=== PATIENT | female | born 1945 | race Caucasian/White ===

== ENCOUNTER → 2016-08-31 | Outpatient (CLI) | payer MEDICARE ==
[~2016-08-31] MED LIST: ALPR0.257 PO; ALPR0.5T6 PO; ASCO500T3 PO; ASPI81TA50 PO; CA C1TAB28 PO; CALC-98 PO; DULO30CA2 PO; FOLI1TAB16 PO; HYDR-2758 PO; HYDR1TAB20 PO; LEVO75TA5 PO; MULT1TAB77 PO; OLME40TA12 PO; SIMV10TA3 PO; TRAZ150T49 PO; VENL150T PO; VENL75CA PO; trazodone PO; vitamin c PO
--- NOTE | 2016-08-31 12:54 | RAD ---
DATE: 08/31/2016. EXAM: DIGITAL SCREEN LT W/CAD. HISTORY: Personal history of right breast cancer status post mastectomy. Routine left mammographic screening. COMPARISON: 08/30/2015, 08/24/2015, 08/19/2014, 08/18/2013. This study was interpreted with the benefit of Computerized Aided Detection (CAD). FINDINGS: The breast parenchyma heterogeneously dense, which could reduce sensitivity of mammography. There are no suspicious masses, microcalcifications or architectural distortion. Nodules inferomedially on the left are stable and benign. Scattered and vascular calcifications are also benign. BI-RADS CATEGORY: 2 BENIGN FINDING(S). RECOMMENDED FOLLOW-UP: 12M 12 MONTH FOLLOW-UP. PQRS compliance statement: Patient information was entered into a reminder system with a target due date 08/31/2017 for the next mammogram. Mammography is a sensitive method for finding small breast cancers, but it does not detect them all and is not a substitute for careful clinical examination. A negative mammogram does not negate a clinically suspicious finding and should not result in delay in biopsying a clinically suspicious abnormality. "Our facility is accredited by the [employer] Mammography Program."
== END | disposition home or self-care (01) ==
LOC: MAMMO 10:30
PROVIDERS: ATTEND Family Medicine
DX: Z12.31 Encounter for screening mammogram for malignant neoplasm of breast (principal)
CPT/HCPCS: G0202; 77067

== ENCOUNTER → 2017-05-10 | Outpatient (CLI) | payer MEDICARE ==
[2017-05-10] MEDS: BUPIVACAINE MPF 0.5% 10 ML VIAL for KCIC. IJ (14:35)
[2017-05-10] MEDS: IOHEXOL 300 MG/ML 50 ML VIAL. INT ART (14:35)
[2017-05-10] MEDS: methylPREDNISolone ACETATE 40 MG/ML VIAL. INT ART (14:35)
[2017-05-10] MEDS: LIDOCAINE 1% Multi-Dose 20 ML VIAL. ID (14:35)
== END | disposition home or self-care (01) ==
LOC: KCIC 13:54
DX: G89.29 Other chronic pain (principal); M25.552 Pain in left hip
CPT/HCPCS: 20610; 77002; J1030; Q9967

== ENCOUNTER → 2017-12-27 | Outpatient (CLI) | payer MEDICARE ==
[~2017-12-27] MED LIST changes: +REGADENOSON 0.4 MG/5 ML DISP.SYRIN. IV ONE
--- NOTE | 2017-12-27 13:07 | RAD ---
MR#: [id number] Date of Study: 12/27/2017 Ordering Physician: SHAW KHAN, Referring Physician: MICHELLE PEÑA Tech: JAGDISH Kaur APPROVED REPORT Test Type: Pharmacological Stress Nurse/Tech: Brandee MONTELONGO Test Indications: CP Cardiac History: Hyperlipidemia, HTN, See EMR Medications: ASA 81mg, See EMR Medical History: See EMR Resting ECG: SR Resting Heart Rate: 57 bpm Resting Blood Pressure: 114/53mmHg Pretest Chest Pain: No chest pain Nurse/Tech Notes Lungs CTA. Heart tones regular. Consent: The procedure was explained to the patient in lay terms. Informed consent was witnessed. Salas eout was entered into [employer]. History and Stress Test performed by RT Alida (R) (N) Pharm. Details Pharmacologic stress testing was performed using 0.4mg per 5ml of regadenoson given intravenously ove r 7-10 seconds. Stress Symptoms No chest pain or symptoms. POST EXERCISE Reason for Termination: Infusion complete Max HR: 96 bpm Max Blood Pressure: 128/51mmHg Chest Pain: No. Arrhythmia: No. ST Change: No. INTERPRETATION Stress EKG Conclusion: Baseline EKG showed sinus rhythm. No ischemic changes at peak stress. No arr hythmias. Imaging Protocol IMAGE PROTOCOL: Rest Tc-99m/stress Tc-99m 1 day Rest: Stress: Viability: Radiopharm.Tc99m [id number] Sestamibi Dose11.4mCi 34mCi Duration 15min. 13min. Img Date 12/27/2017 12/27/2017 Inj-Img [id number]. 90min. Rest Admin Site:IV - Left AntecubitalAdministrator:LENY Roth, ARRT (R)(N) Stress Admin Site: IV - Left AntecubitalAdministrator: RT Alida (R)(N) STRESS DATA End Diast. Vol.59.0mlLVEDV index BSA33.0ml End Syst. Vol.19.0mlLVESV index BSA11.0ml Myocardial Mass98.0gEject. Lvarmadg02.0% Stress Scores Regional WT1.00Summed WT5.00 Regional WM0.00Summed WM5.00 Study quality was good. Left Ventricular size was Normal at Rest and Stress. Lung uptake was . Left Ventricular ejection fraction is 68%. The rest and stress images show normal perfusion, normal contraction and thickening. LV Perf. Quant 17 Seg. SSS4.00 17 Seg. SRS8.00 17 Seg. SDS0.00 Stress Defect Extent (% LAD)0.00Rest Defect Extent (% LAD)5.00Rev. Defect Extent (% LAD)0.00 Stress Defect Extent (% LCX) 23.80Rest Defect Extent (% LCX)18.80Rev. Defect Extent (% LCX)7.50 Stress Defect Extent (% RCA)0.00Rest Defect Extent (% RCA)20.00Rev. Defect Extent (% RCA)0.00 Stress Defect Extent (% RUCHI)4.80Rest Defect Extent (% RUCHI)15.90Rev. Defect Extent (% RUCHI)1.30 Conclusion 1. Regadenoson cardioisotope stress test did not show any evidence of ischemia or infarct. 2. Normal left ventricular systolic function with ejection fraction calculated at 68%. 3. Low risk for cardiac events. Signed by : Aristeo Baron, Electronically Approved : 12/27/2017 13:06:43
== END | disposition home or self-care (01) ==
LOC: NM 09:21
PROVIDERS: ATTEND Family Medicine
DX: R07.9 Chest pain, unspecified (principal); I10 Essential (primary) hypertension; E78.5 Hyperlipidemia, unspecified; E78.00 Pure hypercholesterolemia, unspecified; E03.9 Hypothyroidism, unspecified; F32.9 Major depressive disorder, single episode, unspecified; F41.9 Anxiety disorder, unspecified; Z85.3 Personal history of malignant neoplasm of breast; Z90.11 Acquired absence of right breast and nipple
CPT/HCPCS: 78452; 93017; 96374; 96375; 96376; A9500; J2785

== ENCOUNTER → 2018-01-17 | Outpatient (CLI) | payer MEDICARE ==
[~2018-01-17] MED LIST changes: +CONTRAST GIVEN. MC PRN; -HYDR-2758 PO; +HYDR-2761 PO; +IOHEXOL 240 MG/ML 50ML VIAL. PO ONE; -REGADENOSON 0.4 MG/5 ML DISP.SYRIN. IV ONE
[2018-01-17 10:43] LABS: CREATININE 0.8 mg/dL (0.6-1.0); GFR 70.3
[2018-01-17] MEDS: IOHEXOL 300 MG/ML 100ML VIAL. IV ONE (11:00)
--- NOTE | 2018-01-18 08:23 | RAD ---
CT of the abdomen and pelvis with contrast, 01/17/2018: HISTORY: Epigastric pain, weight loss Multidetector CT imaging was performed following oral and IV administration of contrast. No hepatic abnormality is detected. The gallbladder is unremarkable. No pancreatic abnormality is seen. The spleen is of normal size. The kidneys show no evidence of obstruction or mass. There is moderate calcific plaquing of the abdominal aorta and its branches. No abdominal or pelvic adenopathy is seen. There is a moderate amount of stool scattered throughout the colon. Colonic diverticula are present, most numerous in the sigmoid region. No paracolonic inflammatory process is seen. The appendix is visualized and shows no abnormality. The bowel loops are not dilated. No free fluid or free air is evident in the abdomen or pelvis. A right breast implant is noted. Moderate multilevel degenerative change is present in the spine. IMPRESSION: 1. Sigmoid diverticulosis. 2. No acute abdominal or pelvic abnormality is detected. PQRS Compliance Statement: One or more of the following individualized dose reduction techniques were utilized for this examination: 1. Automated exposure control 2. Adjustment of the mA and/or kV according to patient size 3. Use of iterative reconstruction technique Electronically signed by: Yonatan Aguiar MD (01/18/2018 8:20 AM) [facility]
== END | disposition home or self-care (01) ==
LOC: CT 09:51
PROVIDERS: ATTEND Internal Medicine Gastroenterology
DX: K57.30 Diverticulosis of large intestine without perforation or abscess without bleeding (principal)
CPT/HCPCS: 36415; 74177; 82565; 84520; Q9967

== ENCOUNTER → 2018-01-25 | Day surgery (SDC) | payer MEDICARE ==
[~2018-01-25] MED LIST changes: -CONTRAST GIVEN. MC PRN; +DULO60CA6 PO; +HYDROmorphone 2 MG/ML VIAL IV PRN; -IOHEXOL 240 MG/ML 50ML VIAL. PO ONE; +IV RINGERS,LACTATED 1000ML 1,000 ML IV SCH; +LIDOCAINE 1% PF 2 ML VIAL. ID PRN; +LIDOCAINE 1% PF 2 ML VIAL. ONE; +LOSA100T14 PO; +MORPHINE SULFATE 2 MG/ML VIAL. IV PRN; +ONDANSETRON PF 4 MG/2 ML VIAL. IV PRN; +PROCHLORPERAZINE 10 MG/2 ML VIAL. IV PRN; +PROPOFOL 20 ML IV ONE; +fentaNYL PF VIAL 100 MCG/2 ML VIAL IV PRN
[2018-01-25 11:43] VITALS: BP 131/62
== END | disposition home or self-care (01) ==
LOC: SURG 09:33
PROVIDERS: ATTEND Internal Medicine Gastroenterology
DX: K29.50 Unspecified chronic gastritis without bleeding (principal); Z88.0 Allergy status to penicillin; F41.9 Anxiety disorder, unspecified; F32.9 Major depressive disorder, single episode, unspecified; I10 Essential (primary) hypertension; E78.00 Pure hypercholesterolemia, unspecified; E03.9 Hypothyroidism, unspecified; M19.90 Unspecified osteoarthritis, unspecified site; Z85.3 Personal history of malignant neoplasm of breast; Z80.3 Family history of malignant neoplasm of breast; Z80.41 Family history of malignant neoplasm of ovary; Z82.49 Family history of ischemic heart disease and other diseases of the circulatory system; Z79.899 Other long term (current) drug therapy; Z98.890 Other specified postprocedural states; Z88.8 Allergy status to other drugs, medicaments and biological substances
CPT/HCPCS: 43235; J2704

== ENCOUNTER 2018-01-29 14:55 | Emergency (ER) | payer MEDICARE ==
[~2018-01-29] VITALS: Ht 162.6 cm; Wt 71.4 kg
[~2018-01-29 14:55] MED LIST changes: -HYDROmorphone 2 MG/ML VIAL IV PRN; -IV RINGERS,LACTATED 1000ML 1,000 ML IV SCH; -LIDOCAINE 1% PF 2 ML VIAL. ID PRN; -LIDOCAINE 1% PF 2 ML VIAL. ONE; -MORPHINE SULFATE 2 MG/ML VIAL. IV PRN; -ONDANSETRON PF 4 MG/2 ML VIAL. IV PRN; -PROCHLORPERAZINE 10 MG/2 ML VIAL. IV PRN; -PROPOFOL 20 ML IV ONE; -fentaNYL PF VIAL 100 MCG/2 ML VIAL IV PRN
[2018-01-29 15:46] LABS: BASO # 0.1 x10^3/uL (0.0-0.2); BASO % 1 % (0-3); EOS # 0.2 x10^3/uL (0.0-0.7); EOS % 4 % (0-3); HEMATOCRIT 38.3 % (36.0-47.0); HEMOGLOBIN 13.2 g/dL (12.0-15.5); LYMPH # 1.1 x10^3/uL (1.0-4.8); LYMPH % 17 % (24-48); MEAN CORPUSCULAR HEMOGLOBIN 34 pg (25-35); MEAN CORPUSCULAR HGB CONC 35 g/dL (31-37); MEAN CORPUSCULAR VOLUME 97 fL (79-100); MONO # 0.6 x10^3/uL (0.0-1.1); MONO % 9 % (0-9); NEUT # 4.5 x10^3uL (1.8-7.7); NEUT % 70 % (31-73); PLATELET COUNT 289 x10^3/uL (140-400); RED BLOOD COUNT 3.95 x10^6/uL (3.50-5.40); RED CELL DISTRIBUTION WIDTH 12.7 % (11.5-14.5); WHITE BLOOD COUNT 6.4 x10^3/uL (4.0-11.0)
--- NOTE | 2018-01-29 16:05 | RAD ---
Examination: Ultrasound abdomen limited HISTORY: History of right upper quadrant pain COMPARISON: None available. FINDINGS: The visualized pancreas grossly appears unremarkable. The echogenicity of the liver grossly appears unremarkable. No evidence of gallstones identified. The common bile duct measures 2.9 mm in diameter. The right kidney measures 10 cm in length. IMPRESSION: Unremarkable right upper quadrant abdomen. Electronically signed by: Humberto Stuart MD (01/29/2018 4:00 PM) [id number]
--- NOTE | 2018-01-29 16:12 | RAD ---
EXAM: CHEST 1 VIEW History: Dyspnea, chest pain COMPARISON: 04/06/2013 TECHNIQUE: Single portable radiograph of the chest FINDINGS: The cardiac silhouette is unremarkable. The lungs are clear bilaterally. The costophrenic sulci are clear and well demarcated. IMPRESSION: No radiographic evidence of an acute cardiopulmonary process. Electronically signed by: Humberto Stuart MD (01/29/2018 4:08 PM) [id number]
--- NOTE | 2018-01-29 17:26 | PHYS DOC ---
Past Medical History Past Medical History: Anxiety, Cancer, Depression, High Cholesterol, Hypertension, Hypothyroid Past Surgical History: Cancer Surgery, Tonsillectomy Additional Past Surgical Histo: RIGHT sided masectomy Additional Information: SMOKES IN HOME Alcohol Use: None Drug Use: None Adult General Chief Complaint Chief Complaint: SHORTNESS OF BREATH HPI HPI Patient is a 72 year old female who presents with dyspnea. Patient has been having symptoms for several months. She describes intermittent episodes of dyspnea that frequently occur both at rest and with activity. She does not have associated chest pain or palpitations. Patient states she has been exhaustively worked up for the symptoms but no acute causes have been found. She did undergo an EGD and was diagnosed with gastritis but it is not clear if her pain symptoms are related to this diagnosis and particularly not her dyspnea. She does have associated abdominal pain which she describes to be in the left upper quadrant. She has undergone CT scan of the abdomen pelvis which did not reveal any acute findings. Today, she presents to the ER because she had an episode of dyspnea. She was standing in her house. She bent over to do something and became short of breath. Her symptoms lasted longer than normal so she became concerned. She contacted her GI physicians office and was recommended to come to the ER. By the time she arrived in the ER, her symptoms had completely resolved. No chest pain. No dyspnea. She does not describe any worsening dyspnea with exertion or orthopnea. No recent illness. She has been eating and drinking normally. Review of Systems Review of Systems Constitutional: Denies fever or chills Eyes: Denies change in visual acuity HENT: Denies nasal congestion Respiratory: Denies cough Cardiovascular: No additional information not addressed in HPI GI: Denies nausea or vomiting : Denies dysuria Musculoskeletal: Denies back pain Integument: Denies rash or skin lesions Neurologic: Denies headache or focal neuro complaints All other systems were reviewed and found to be within normal limits, except as documented in this note. Current Medications Current Medications Current Medications Medications (Trade) Dose Ordered Sig/Luigi Start Time Stop Time Status Last Admin Dose Admin Info (CONTRAST GIVEN -- Rx MONITORING) 1 each PRN DAILY PRN 01/29/18 19:45 01/29/18 21:52 DC Iohexol (Omnipaque 300 Mg/ml) 75 ml 1X ONCE 01/29/18 19:45 01/29/18 19:46 DC 01/29/18 20:06 75 ML Allergies Allergies Allergies Coded Allergies Type Severity Reaction Last Updated Verified Penicillins Allergy Intermediate hives 01/25/18 Yes metronidazole Allergy Intermediate rash 01/25/18 Yes Physical Exam Physical Exam Constitutional: Well developed, well nourished, no acute distress, non-toxic appearance HENT: Normocephalic, atraumatic, bilateral external ears normal, oropharynx moist Eyes: PERRLA, EOMI, conjunctiva normal Neck: Normal range of motion, no tenderness Cardiovascular:Heart rate regular rhythm Lungs & Thorax: Bilateral breath sounds clear to auscultation Abdomen: Bowel sounds normal, soft, no tenderness Skin: Warm, dry, no erythema, no rash Extremities: No edema Neurologic: Alert and oriented X 3 Psychologic: Affect normal Current Patient Data Vital Signs Vital Signs Date Time Temp Pulse Resp B/P (MAP) Pulse Ox O2 Delivery O2 Flow Rate FiO2 01/29/18 21:40 98.2 66 16 126/74 (91) 97 Room Air 98.2 Lab Values Laboratory Tests Test 01/29/18 15:15 01/29/18 17:10 01/29/18 17:54 01/29/18 18:15 White Blood Count 6.4 x10^3/uL (4.0-11.0) Red Blood Count 3.95 x10^6/uL (3.50-5.40) Hemoglobin 13.2 g/dL (12.0-15.5) Hematocrit 38.3 % (36.0-47.0) Mean Corpuscular Volume 97 fL (79-100) Mean Corpuscular Hemoglobin 34 pg (25-35) Mean Corpuscular Hemoglobin Concent 35 g/dL (31-37) Red Cell Distribution Width 12.7 % (11.5-14.5) Platelet Count 289 x10^3/uL (140-400) Neutrophils (%) (Auto) 70 % (31-73) Lymphocytes (%) (Auto) 17 % (24-48) L Monocytes (%) (Auto) 9 % (0-9) Eosinophils (%) (Auto) 4 % (0-3) H Basophils (%) (Auto) 1 % (0-3) Neutrophils # (Auto) 4.5 x10^3uL (1.8-7.7) Lymphocytes # (Auto) 1.1 x10^3/uL (1.0-4.8) Monocytes # (Auto) 0.6 x10^3/uL (0.0-1.1) Eosinophils # (Auto) 0.2 x10^3/uL (0.0-0.7) Basophils # (Auto) 0.1 x10^3/uL (0.0-0.2) Troponin I Quantitative < 0.017 ng/mL (0.000-0.055) Sodium Level 138 mmol/L (136-145) Potassium Level 4.9 mmol/L (3.5-5.1) Chloride Level 102 mmol/L (98-107) Carbon Dioxide Level 29 mmol/L (21-32) Anion Gap 7 (6-14) Blood Urea Nitrogen 22 mg/dL (7-20) H Creatinine 0.7 mg/dL (0.6-1.0) Estimated GFR (Cockcroft-Gault) 82.0 Glucose Level 99 mg/dL (70-99) Calcium Level 9.5 mg/dL (8.5-10.1) Total Bilirubin 0.4 mg/dL (0.2-1.0) Direct Bilirubin 0.1 mg/dL (0.0-0.2) Aspartate Amino Transferase (AST) 24 U/L (15-37) Alanine Aminotransferase (ALT) 24 U/L (14-59) Alkaline Phosphatase 98 U/L (46-116) WN-Iuk-E-Type Natriuretic Peptide 75 pg/mL (0-124) Total Protein 7.0 g/dL (6.4-8.2) Albumin 3.6 g/dL (3.4-5.0) Lipase 88 U/L (73-393) Urine Collection Type Unknown Urine Color Yellow Urine Clarity Clear Urine pH 7.0 Urine Specific [place] 1.015 Urine Protein Negative mg/dL (NEG-TRACE) Urine Glucose (UA) Negative mg/dL (NEG) Urine Ketones (Stick) Negative mg/dL (NEG) Urine Blood Negative (NEG) Urine Nitrite Negative (NEG) Urine Bilirubin Negative (NEG) Urine Urobilinogen Dipstick 0.2 mg/dL (0.2 mg/dL) Urine Leukocyte Esterase Trace (NEG) Urine RBC 0 /HPF (0-2) Urine WBC Occ /HPF (0-4) Urine Squamous Epithelial Cells Occ /LPF Urine Bacteria 0 /HPF (0-FEW) D-Dimer (Karmen) 0.58 ug/mlFEU (0.00-0.50) H Laboratory Tests 01/29/18 15:15 Laboratory Tests 01/29/18 17:10 EKG EKG [] Radiology/Procedures Radiology/Procedures RUQ US: no acute findings CTA chest: no acute findings CXR: no acute findings. Course & Med Decision Making Course & Med Decision Making Pertinent Labs and Imaging studies reviewed. (See chart for details) Patient was evaluated immediately on arrival to her room. Her symptoms have resolved since coming to the ER. We'll check basic abdominal pain and cardiac workups. Patient is scheduled for a right upper quadrant ultrasound in the near future. We will obtain that today. Patient was evaluated in the emergency department for symptoms of dyspnea. She describes dyspnea with exertion primarily but also with position changes and intermittently some shortness of breath while at rest. Her workup in the ER was negative for any acute findings. CT scan of the chest with angiography was completed and was normal. No clot was seen. No other findings. Right upper quadrant ultrasound was completed with her complaint of chronic abdominal pain. This study was normal. BNP was not elevated. Patient did not have signs of fluid overload on her exam. The patient has been extensively worked up for this but has not followed with pulmonology yet. She may benefit from pulmonary function tests at least to rule out a pulmonary cause for her symptoms. She is discharged home this evening. She is referred to follow up with Dr. Zapata. Return to the ER for any new or worsening symptoms. Dragon Disclaimer Dragon Disclaimer This electronic medical record was generated, in whole or in part, using a voice recognition dictation system. Departure Departure Disposition: 01 HOME, SELF-CARE Condition: GOOD Referrals: SHAW KHAN MD (PCP) ELY HER DO Jan 29, 2018 17:26
[2018-01-29 17:45] LABS: CALCIUM 9.5 mg/dL (8.5-10.1); CREATININE 0.7 mg/dL (0.6-1.0); POTASSIUM 4.9 mmol/L (3.5-5.1)
[2018-01-29 17:50] LABS: ALBUMIN 3.6 g/dL (3.4-5.0); DIRECT BILIRUBIN 0.1 mg/dL (0.0-0.2); TOTAL BILIRUBIN 0.4 mg/dL (0.2-1.0)
[2018-01-29 18:01] LABS: BILIRUBIN,URINE NEGATIVE (NEG); CLARITY,URINE CLEAR; COLOR,URINE YELLOW; NITRITE,URINE NEGATIVE (NEG); PROTEIN,URINE NEGATIVE (NEG-TRACE); UROBILINOGEN,URINE 0.2 mg/dL (0.2 mg/dL)
[2018-01-29 18:32] LABS: BACTERIA,URINE 0 /HPF (0-FEW); RBC,URINE 0 /HPF (0-2); SQUAMOUS EPITHELIAL CELL,UR OCC /LPF; WBC,URINE OCC /HPF (0-4)
[2018-01-29] MEDS ORDERED: IOHEXOL 300 MG/ML 100ML VIAL. IV ONE (19:45)
[2018-01-29] MEDS ORDERED: CONTRAST GIVEN. MC PRN (19:45)
--- NOTE | 2018-01-29 20:27 | RAD ---
Examination: CT ANGIOGRAPHY CHEST History: soa, cp, elevated d dimer, vghh127 75ml, no priors Comparison/Correlation: 08/31/2008 CT chest abdomen and pelvis without contrast Findings: Axial images of the chest were obtained following IV contrast. Sagittal and coronal reformatted images were provided. MIP technique utilized exam was performed according to pulmonary arteriography protocol. Excellent opacification of the pulmonary arterial vasculature and the thoracic aorta is noted. Pulmonary arterial vasculature is normal with no thromboembolic disease. No infiltrates, pleural effusions, or suspicious pulmonary nodules. No pericardial effusion. Calcific involvement of the origin of the left subclavian artery is present. Origins of the right brachycephalic, right common carotid, and left common carotid arteries is normal. Calcified lymph node is present along the left lateral margin of the aortic arch. No enlarged or other suspicious lymph nodes. Significant calcific involvement of the origin of the left main renal artery noted. Impression: No pulmonary arterial thromboembolic disease. No infiltrate. Electronically signed by: Anson Alex MD (01/29/2018 8:23 PM) [facility]
--- NOTE | 2018-01-29 20:43 | EKG ---
[facility] [address] [place] [address] Test Date: 2018-01-29 Test Time: 15:12:47 Pat Name: EDUARDO LIPSCOMB Department: Room: Gender: F Quality System Manager: : 1945 Requested By: ELY HER Order Number: [id number] Reading MD: Enoch Coleman Measurements Intervals [place] Rate: 77 P: 28 NM: 148 QRS: 35 QRSD: 72 T: 27 QT: 388 QTc: 440 Interpretive Statements SINUS RHYTHM NONSPECIFIC ST-T WAVE CHANGES. Electronically Signed On 01-30-2018 8:48:34 [employer]IATE by Enoch Coleman
[2018-01-29 21:40] VITALS: BP 126/74
== END 2018-01-29 21:51 | disposition home or self-care (01) ==
LOC: ER 14:55
DX: R06.00 Dyspnea, unspecified (principal); R06.02 Shortness of breath; G89.29 Other chronic pain; R10.9 Unspecified abdominal pain; F41.9 Anxiety disorder, unspecified; F32.9 Major depressive disorder, single episode, unspecified; E78.00 Pure hypercholesterolemia, unspecified; I10 Essential (primary) hypertension; E03.9 Hypothyroidism, unspecified; Z88.0 Allergy status to penicillin; Z88.8 Allergy status to other drugs, medicaments and biological substances
CPT/HCPCS: 36415; 71045; 71275; 76705; 80048; 80076; 81001; 83690; 83880; 84484; 85025; 85379; 93005; 99284; Q9967

== ENCOUNTER → 2018-02-07 | Outpatient (CLI) | payer MEDICARE ==
[2018-01-29 21:40] VITALS: BP 126/74
[~2018-02-07] VITALS: Ht 160 cm; Wt 69.9 kg
[~2018-02-07] MED LIST changes: +SINCALIDE 1.4 MCG in IV NORMAL SALINE 50ML 30 ML IV ONE
--- NOTE | 2018-02-07 12:29 | RAD ---
Examination: NM HEPATOBILIARY SCAN W PHARM History: nausea, lower abdomen pain, light headed, short of breath for 2 1/2 months. 5.2mCi Tc99m Choletec and 1.4mcg CCK given IV over 30 minutes Comparison/Correlation: None Findings: 5.2 mCi technetium 99m Choletec was intravenously administered for hepatic 30 scintigraphy examination. Uptake of radiotracer by liver is normal. Gallbladder is seen at 15 minutes. No biliary dilatation. There is no radiotracer identified within small bowel at 60 minutes. After 60 minutes, 1.4 mcg CCK was intravenously administered over 30 minutes. Imaging was performed over the course of 60 minutes. The gallbladder ejection fraction is 99%. Impression: No evidence of acute or chronic cholecystitis. Radiotracer is not evident within small bowel at 60 minutes and this raises concern for spasm at the sphincter of [place]. Electronically signed by: Anson Alex MD (02/07/2018 12:25 PM) [id number]
== END | disposition home or self-care (01) ==
LOC: NM 08:57
PROVIDERS: ATTEND Internal Medicine Gastroenterology
DX: R10.13 Epigastric pain (principal)
CPT/HCPCS: 78227; A9537; J2805

== ENCOUNTER → 2018-02-21 | Outpatient (CLI) | payer MEDICARE, OTHER ==
[2018-01-29 21:40] VITALS: BP 126/74
[~2018-02-21] MED LIST changes: +ALPR0.254 PO; +ASCO-72 PO; +HYDR-2759 PO; +LACT1CAP41 PO; +LEVO50TA5 PO; +LOSA100T2 PO; -SINCALIDE 1.4 MCG in IV NORMAL SALINE 50ML 30 ML IV ONE; +SUCR1TAB PO
[2018-02-21 10:18] LABS: ALBUMIN 3.6 g/dL (3.4-5.0); ALBUMIN/GLOBULIN RATIO 1.1 (1.0-1.7); CALCIUM 9.1 mg/dL (8.5-10.1); CREATININE 0.8 mg/dL (0.6-1.0); GFR 70.3; TOTAL BILIRUBIN 0.5 mg/dL (0.2-1.0)
--- NOTE | 2018-02-21 15:15 | RAD ---
MRCP, 02/21/2018: HISTORY: Abnormal PIPIDA scan Imaging was performed in axial and coronal planes utilizing a variety of imaging sequences including T2 weighted, fat suppressed T2 weighted, diffusion weighted and opposed phase gradient echo sequences. 2-D and 3-D heavily T2 weighted MRCP sequences were also performed with 3-D reconstructions produced. The gallbladder is unremarkable. The bile ducts are of normal caliber. The distal common bile duct tapers normally at the ampulla. No filling defect is seen in the common duct. The pancreatic duct is normal. No hepatic, pancreatic, splenic or renal abnormality is detected. IMPRESSION: Normal MRCP. Electronically signed by: Yonatan Aguiar MD (02/21/2018 3:11 PM) [facility]
== END | disposition home or self-care (01) ==
LOC: MRI 08:35
PROVIDERS: ATTEND Internal Medicine Gastroenterology
DX: R93.89 Abnormal findings on diagnostic imaging of other specified body structures (principal)
CPT/HCPCS: 36415; 74181; 80053

== ENCOUNTER 2018-03-13 18:19 | Inpatient (IN) | payer OTHER ==
[~2018-03-13] VITALS: Ht 160 cm; Wt 72.6 kg
[~2018-03-13 18:19] MED LIST changes: -ASCO-72 PO; -LOSA100T2 PO; -SUCR1TAB PO
[2018-03-13] MEDS ORDERED: IV NORMAL SALINE 1000ML BAG 1,000 ML IV SCH (18:33)
[2018-03-13] MEDS ORDERED: ASPIRIN CHEWABLE 81 MG TABLET. PO ONE (18:45)
[2018-03-13] MEDS: NITROGLYCERIN SUBLINGUAL 0.4 MG BOTTLE OF 25. SL PRN ×3 (18:49→19:04)
[2018-03-13 18:54] LABS: BASO # 0.1 x10^3/uL (0.0-0.2); BASO % 1 % (0-3); EOS # 0.1 x10^3/uL (0.0-0.7); EOS % 2 % (0-3); HEMATOCRIT 37.9 % (36.0-47.0); HEMOGLOBIN 12.8 g/dL (12.0-15.5); LYMPH # 1.4 x10^3/uL (1.0-4.8); LYMPH % 22 % (24-48); MEAN CORPUSCULAR HEMOGLOBIN 33 pg (25-35); MEAN CORPUSCULAR HGB CONC 34 g/dL (31-37); MEAN CORPUSCULAR VOLUME 97 fL (79-100); MONO # 0.4 x10^3/uL (0.0-1.1); MONO % 6 % (0-9); NEUT # 4.5 x10^3uL (1.8-7.7); NEUT % 69 % (31-73); PLATELET COUNT 266 x10^3/uL (140-400); RED BLOOD COUNT 3.92 x10^6/uL (3.50-5.40); RED CELL DISTRIBUTION WIDTH 12.1 % (11.5-14.5); WHITE BLOOD COUNT 6.5 x10^3/uL (4.0-11.0)
[2018-03-13 19:00] LABS: PROTHROMBIN TIME PATIENT 12.7 SEC (11.7-14.0)
[2018-03-13 19:02] LABS: CALCIUM 9.5 mg/dL (8.5-10.1); CREATININE 0.7 mg/dL (0.6-1.0); POTASSIUM 3.6 mmol/L (3.5-5.1)
[2018-03-13 19:08] LABS: ALBUMIN 4.1 g/dL (3.4-5.0); ALBUMIN/GLOBULIN RATIO 1.3 (1.0-1.7); TOTAL BILIRUBIN 0.5 mg/dL (0.2-1.0); TOTAL PROTEIN 7.2 g/dL (6.4-8.2)
--- NOTE | 2018-03-13 19:21 | PHYS DOC ---
Past Medical History Past Medical History: Anxiety, Hypertension, Hypothyroid Additional Past Medical Histor: breast cancer Past Surgical History: Cancer Surgery, Tonsillectomy Additional Past Surgical Histo: mastectomy right side Alcohol Use: Occasionally Drug Use: None Adult General Chief Complaint Chief Complaint: CHEST PAIN HPI HPI Patient is a 72-year-old female who presents with complaint of chest pain and shortness of breath. Patient states that the shortness of breath is been present for the last few months and is worsened with exertion or when she bends over. She also indicates that she has been having chest discomfort for approximately a month now but today the chest discomfort had gotten worse. She states that pain had been approximately an 8-9 out of 10. She describes pain as a lot of pressure on her chest stating that it feels like an elephant is on her chest. Patient took a nitroglycerin prior to EMS arrival and she states that her chest pain is a bit improved at this time. She states that nitroglycerin typically makes her chest pain better. She does indicate that she has had some nausea intermittently but thinks that that is from the nitroglycerin. Review of Systems Review of Systems Constitutional: Denies fever or chills [] Respiratory: Complains of shortness of breath [] Cardiovascular: No additional information not addressed in HPI [] GI: Denies abdominal pain. Admits to nausea without vomiting or diarrhea [] Musculoskeletal: Denies back pain or joint pain [] Integument: Denies rash or skin lesions [] All other systems were reviewed and found to be within normal limits, except as documented in this note. Current Medications Current Medications Current Medications Medications (Trade) Dose Ordered Sig/Luigi Start Time Stop Time Status Last Admin Dose Admin Aspirin (Children'S Aspirin) 324 mg 1X ONCE 03/13/18 18:45 03/13/18 18:46 DC 03/13/18 18:45 324 MG Nitroglycerin (Nitrostat) 0.4 mg PRN Q5MIN PRN 03/13/18 18:45 03/14/18 18:44 03/13/18 19:04 0.4 MG Sodium Chloride 1,000 ml @ 100 mls/hr Q10H 03/13/18 18:33 03/14/18 04:32 03/13/18 18:56 100 MLS/HR Allergies Allergies Allergies Coded Allergies Type Severity Reaction Last Updated Verified Penicillins Allergy Intermediate hives 01/25/18 Yes metronidazole Allergy Intermediate rash 01/25/18 Yes Physical Exam Physical Exam Constitutional: Well developed, well nourished, no acute distress, non-toxic appearance. [] HENT: Normocephalic, atraumatic, bilateral external ears normal, oropharynx moist, no oral exudates, nose normal. [] Eyes: PERRLA, EOMI, conjunctiva normal, no discharge. [] Neck: Normal range of motion, no tenderness, supple, no stridor. [] Cardiovascular: Regular rate and rhythm [] Lungs & Thorax: Bilateral breath sounds clear to auscultation [] Abdomen: Bowel sounds normal, soft, no tenderness. [] Skin: Warm, dry, no erythema, no rash. [] Extremities: No tenderness, no cyanosis, no clubbing, ROM intact. [] Neurologic: Alert and oriented X 3, no focal deficits noted. [] Current Patient Data Vital Signs Vital Signs Date Time Temp Pulse Resp B/P (MAP) Pulse Ox O2 Delivery O2 Flow Rate FiO2 03/13/18 19:04 76 125/59 03/13/18 18:32 97.8 16 99 Room Air 97.8 Lab Values Laboratory Tests Test 03/13/18 18:40 White Blood Count 6.5 x10^3/uL (4.0-11.0) Red Blood Count 3.92 x10^6/uL (3.50-5.40) Hemoglobin 12.8 g/dL (12.0-15.5) Hematocrit 37.9 % (36.0-47.0) Mean Corpuscular Volume 97 fL (79-100) Mean Corpuscular Hemoglobin 33 pg (25-35) Mean Corpuscular Hemoglobin Concent 34 g/dL (31-37) Red Cell Distribution Width 12.1 % (11.5-14.5) Platelet Count 266 x10^3/uL (140-400) Neutrophils (%) (Auto) 69 % (31-73) Lymphocytes (%) (Auto) 22 % (24-48) L Monocytes (%) (Auto) 6 % (0-9) Eosinophils (%) (Auto) 2 % (0-3) Basophils (%) (Auto) 1 % (0-3) Neutrophils # (Auto) 4.5 x10^3uL (1.8-7.7) Lymphocytes # (Auto) 1.4 x10^3/uL (1.0-4.8) Monocytes # (Auto) 0.4 x10^3/uL (0.0-1.1) Eosinophils # (Auto) 0.1 x10^3/uL (0.0-0.7) Basophils # (Auto) 0.1 x10^3/uL (0.0-0.2) Prothrombin Time 12.7 SEC (11.7-14.0) Prothrombin Time INR 1.0 (0.8-1.1) Sodium Level 142 mmol/L (136-145) Potassium Level 3.6 mmol/L (3.5-5.1) Chloride Level 103 mmol/L (98-107) Carbon Dioxide Level 29 mmol/L (21-32) Anion Gap 10 (6-14) Blood Urea Nitrogen 17 mg/dL (7-20) Creatinine 0.7 mg/dL (0.6-1.0) Estimated GFR (Cockcroft-Gault) 82.0 BUN/Creatinine Ratio 24 (6-20) H Glucose Level 96 mg/dL (70-99) Calcium Level 9.5 mg/dL (8.5-10.1) Magnesium Level 2.0 mg/dL (1.8-2.4) Total Bilirubin 0.5 mg/dL (0.2-1.0) Aspartate Amino Transferase (AST) 21 U/L (15-37) Alanine Aminotransferase (ALT) 22 U/L (14-59) Alkaline Phosphatase 78 U/L (46-116) Troponin I Quantitative < 0.017 ng/mL (0.000-0.055) IV-Pgo-P-Type Natriuretic Peptide 173 pg/mL (0-124) H Total Protein 7.2 g/dL (6.4-8.2) Albumin 4.1 g/dL (3.4-5.0) Albumin/Globulin Ratio 1.3 (1.0-1.7) Lipase 152 U/L (73-393) Laboratory Tests 03/13/18 18:40 Laboratory Tests 03/13/18 18:40 EKG EKG EKG demonstrates normal sinus rhythm with rate of 65.[] Radiology/Procedures Radiology/Procedures [] Impressions: Chest x-ray demonstrates no acute process. Course & Med Decision Making Course & Med Decision Making Pertinent Labs and Imaging studies reviewed. (See chart for details) [] Dragon Disclaimer Dragon Disclaimer This electronic medical record was generated, in whole or in part, using a voice recognition dictation system. Departure Departure Impression: Primary Impression: Chest pain at rest Disposition: ADMITTED INPATIENT Admitting Physician: Shaw Khan Condition: IMPROVED Referrals: SHAW KHAN MD (PCP) NEIDA LEWIS Jr. DO Mar 13, 2018 19:21
[2018-03-13] MEDS ORDERED: MORPHINE SULFATE 4 MG/ML VIAL. IV PRN (20:00)
[2018-03-13] MEDS ORDERED: NITROGLYCERIN SUBLINGUAL 0.4 MG BOTTLE OF 25. SL PRN (20:00)
[2018-03-13] MEDS ORDERED: ONDANSETRON PF 4 MG/2 ML VIAL. IV PRN (20:00)
--- NOTE | 2018-03-13 20:12 | RAD ---
PROCEDURE: PORTABLE CHEST 1V CLINICAL INDICATION: Chest pain COMPARISON: 03/01/2018 FINDINGS: No pneumothorax identified. Cardiac and mediastinal contours unremarkable. No pulmonary consolidation or acute airspace disease. No acute osseous abnormalities identified. Calcified left paratracheal lymph node. IMPRESSION: No pulmonary consolidation or acute airspace disease. Electronically signed by: Daryl Ayoub DO (03/13/2018 8:07 PM) [facility]
[2018-03-13 20:38] LABS: BILIRUBIN,URINE NEGATIVE (NEG); CLARITY,URINE CLEAR; COLOR,URINE YELLOW; NITRITE,URINE NEGATIVE (NEG); PH,URINE 7.5; PROTEIN,URINE NEGATIVE (NEG-TRACE); UROBILINOGEN,URINE 0.2 mg/dL (0.2 mg/dL)
[2018-03-13 20:42] LABS: RBC,URINE OCC /HPF (0-2)
[2018-03-13 20:43] LABS: AMORPHOUS SEDIMENT,UR PRESENT /HPF; BACTERIA,URINE 0 /HPF (0-FEW); SQUAMOUS EPITHELIAL CELL,UR OCC /LPF; WBC,URINE OCC /HPF (0-4)
[2018-03-13] MEDS ORDERED: ASCO-72 PO (21:41)
[2018-03-13] MEDS ORDERED: SUCR1TAB PO (21:57)
[2018-03-13] MEDS ORDERED: DULO60CA6 PO (21:57)
[2018-03-13] MEDS ORDERED: LOSA100T2 PO (21:58)
[2018-03-13 23:30] VITALS: BP 116/52
[2018-03-14] VITALS (9 sets, daily range): BP systolic 110–149; BP diastolic 48–70
[2018-03-14] MEDS: IV NORMAL SALINE 1000ML BAG 1,000 ML IV SCH ×2 (00:37→12:24)
--- NOTE | 2018-03-14 06:59 | EKG ---
[facility] [address] [place] [address] Test Date: 2018-03-13 Test Time: 18:34:00 Pat Name: EDUARDO LIPSCOMB Department: Room: 210 1 Gender: F Impersonator Character: : 1945 Requested By: NEIDA LEWIS Order Number: [id number] Reading MD: Anthony Sousa MD Measurements Intervals [place] Rate: 65 P: 48 RI: 138 QRS: 52 QRSD: 76 T: 38 QT: 424 QTc: 442 Interpretive Statements SINUS RHYTHM Electronically Signed On 03-18-2018 9:35:25 [employer]IENT [employer] DESIGNER by Anthony Sousa MD
--- NOTE | 2018-03-14 09:31 | HP ---
ADMIT DATE: 03/13/2018 PATIENT LOCATION: She is in room 210. HISTORY OF PRESENT ILLNESS: This is a 72-year-old white female who is well known to me from follow up in the office. The patient has been having chest pain and shortness of breath over the last several months. It is worsened with any sort of exertion. I have recently given her some nitroglycerin, which she feels does relieve it, but over the last 2-3 days, it has never been gone completely. She has had a negative stress testing as an outpatient, normal pulmonary evaluation as an outpatient and normal laboratory evaluation as an outpatient. It is described occasionally as heavy, like an elephant is sitting on her chest. There is shortness of breath associated with it. I spoke with Dr. Baron earlier on the day of admission about getting her in for a heart catheterization as my feeling is that she may have matched 3-vessel disease giving a false negative stress test. The patient does have a very strong family history of atherosclerotic heart disease. She was admitted through the Emergency Room with worsening of the chest pain and we will try to get a heart catheterization while she is here at this point. PAST MEDICAL HISTORY: The patient's past medical history is remarkable for anxiety, hypertension and hypothyroidism. She has a history of breast cancer. PAST SURGICAL HISTORY: Remarkable for right mastectomy and tonsillectomy. MEDICATIONS: Medications were brought with the patient, listed on the computer and have been addressed. ALLERGIES: SHE IS ALLERGIC TO PENICILLIN AND FLAGYL. SOCIAL HISTORY: She is a nonsmoker, rarely drinks alcohol and does not use drugs. and lives at home with her . FAMILY HISTORY: Noncontributory. REVIEW OF SYSTEMS: As mentioned above. PHYSICAL EXAMINATION: GENERAL: She is well-developed, well-nourished white female, in no acute distress, lying in bed. VITAL SIGNS: Stable. She is afebrile. Troponins are negative x 3 since admission. HEAD, EYES, EARS, NOSE AND THROAT: Remarkable for glasses. NECK: Supple, without lymphadenopathy or thyromegaly. CHEST: Clear to auscultation and percussion. HEART: Regular rate and rhythm, without S3, S4 or murmur. ABDOMEN: Soft, nontender, without hepatosplenomegaly or mass. EXTREMITIES: Without cyanosis, clubbing or edema. NEUROLOGIC: She is intact. LABORATORY DATA: Initial laboratory besides the troponin is essentially unremarkable. BNP was minorly elevated at 173. Coagulation and urine were within normal limits. IMPRESSION: Chest pain, suspicious for angina. PLAN: The patient has been admitted. Cardiology has been consulted. We will expect heart catheterization today, with plans to follow. SHAW KHAN MD DR: ZHANNA/rangel JOB#: [id number] / [id number]
--- NOTE | 2018-03-14 10:28 | PDOC2 ---
JASVIR GODOY [employer]PER[employer]OR [employer] 03/14/18 1028: CARDIAC CONSULT DATE OF CONSULT Date of Consult DATE: 03/14/18 TIME: 10:17 REASON FOR CONSULT Reason for Consult: Chest pain REFERRING PHYSICIAN Referring Physician: Mina SOURCE Source: Chart review, Patient HISTORY OF PRESENT ILLNESS HISTORY OF PRESENT ILLNESS This is a pleasant 72 yo female admitted for complains of chest pain. Reports that in the last few months she has been having chest pressure. She has had multiple imagings including CTA chest, abd scan and stress test which were unremarkable. In the last few weeks she has been having midchest pressure. Last Sunday she was given NTG SL and started taking it Sunday and taking it daily which relieved her chest presure till yesterday to which she took it 5 times and got dizzy, panic and almost passed out at one point. She has been having episodes of nausea, exertional chest pressure and BURCIAGA. No falls, injury , hx of CAD nor VTE. PAST MEDICAL HISTORY Cardiovascular: HTN, Hyperlipidemia Pulmonary: No pertinent hx CENTRAL NERVOUS SYSTEM: Other (No pertinent history) GI: GERD Heme/Onc: Cancer (breast chemo 10 yrs ago, on remission ) Hepatobiliary: No pertinent hx Psych: Anxiety, Depression Musculoskeletal: Osteoarthritis Rheumatologic: No pertinent hx Infectious disease: No pertinent hx ENT: No pertinent hx Renal/: No pertinent hx Endocrine: Hypothyroidism (acquired) Dermatology: No pertinent hx PAST SURGICAL HISTORY Past Surgical History: Mastectomy (right), Tonsillectomy, Other (right thyroidectomy) FAMILY HISTORY Family History: Coronary Artery Disease (father siter) SOCIAL HISTORY Smoke: No ALCOHOL: occassional Drugs: None Lives: with Family CURRENT MEDICATIONS CURRENT MEDICATIONS Current Medications Medications (Trade) Dose Ordered Sig/Luigi Route PRN Reason Start Time Stop Time Status Last Admin Dose Admin Aspirin (Children'S Aspirin) 324 mg 1X ONCE PO 03/13/18 18:45 03/13/18 18:46 DC 03/13/18 18:45 Nitroglycerin (Nitrostat) 0.4 mg PRN Q5MIN PRN SL CP RATING > 02/2103/13/18 18:45 03/14/18 18:44 03/13/18 19:04 Sodium Chloride 1,000 ml @ 100 mls/hr Q10H IV 03/13/18 18:33 03/14/18 04:32 DC 03/13/18 18:56 Sodium Chloride 1,000 ml @ 100 mls/hr Q10H IV 03/13/18 19:57 03/14/18 19:56 03/14/18 00:37 ALLERGIES ALLERGIES: Coded Allergies: Penicillins (Verified Allergy, Intermediate, hives, 01/25/18) metronidazole (Verified Allergy, Intermediate, rash, 01/25/18) ROS Review of System 14 point ROS evaluated with pertinent positives noted per HPI PHYSICAL EXAM General: Alert, Oriented X3, Cooperative, No acute distress HEENT: Atraumatic, Mucous membr. moist/pink Lungs: Clear to auscultation, Normal air movement Heart: Regular rate (SR), Normal S1, Normal S2, No murmurs Abdomen: Soft, No tenderness Extremities: No cyanosis, No edema Skin: No breakdown, No significant lesion Neuro: Normal speech, Sensation intact Psych/Mental Status: Mental status NL, Mood NL MUSCULOSKELETAL: Osteoarthritic changes both hands VITALS VITALS Vital Signs Date Time Temp Pulse Resp B/P (MAP) Pulse Ox O2 Delivery O2 Flow Rate FiO2 03/14/18 08:00 Room Air 03/14/18 07:00 98.0 67 18 111/53 (72) 98 98.0 LABS Lab: Laboratory Tests Test 03/13/18 18:40 03/13/18 20:25 03/13/18 23:20 03/14/18 01:45 White Blood Count 6.5 x10^3/uL (4.0-11.0) Red Blood Count 3.92 x10^6/uL (3.50-5.40) Hemoglobin 12.8 g/dL (12.0-15.5) Hematocrit 37.9 % (36.0-47.0) Mean Corpuscular Volume 97 fL (79-100) Mean Corpuscular Hemoglobin 33 pg (25-35) Mean Corpuscular Hemoglobin Concent 34 g/dL (31-37) Red Cell Distribution Width 12.1 % (11.5-14.5) Platelet Count 266 x10^3/uL (140-400) Neutrophils (%) (Auto) 69 % (31-73) Lymphocytes (%) (Auto) 22 % (24-48) Monocytes (%) (Auto) 6 % (0-9) Eosinophils (%) (Auto) 2 % (0-3) Basophils (%) (Auto) 1 % (0-3) Neutrophils # (Auto) 4.5 x10^3uL (1.8-7.7) Lymphocytes # (Auto) 1.4 x10^3/uL (1.0-4.8) Monocytes # (Auto) 0.4 x10^3/uL (0.0-1.1) Eosinophils # (Auto) 0.1 x10^3/uL (0.0-0.7) Basophils # (Auto) 0.1 x10^3/uL (0.0-0.2) Prothrombin Time 12.7 SEC (11.7-14.0) Prothromb Time International Ratio 1.0 (0.8-1.1) Sodium Level 142 mmol/L (136-145) Potassium Level 3.6 mmol/L (3.5-5.1) Chloride Level 103 mmol/L (98-107) Carbon Dioxide Level 29 mmol/L (21-32) Anion Gap 10 (6-14) Blood Urea Nitrogen 17 mg/dL (7-20) Creatinine 0.7 mg/dL (0.6-1.0) Estimated GFR (Cockcroft-Gault) 82.0 BUN/Creatinine Ratio 24 (6-20) Glucose Level 96 mg/dL (70-99) Calcium Level 9.5 mg/dL (8.5-10.1) Magnesium Level 2.0 mg/dL (1.8-2.4) Total Bilirubin 0.5 mg/dL (0.2-1.0) Aspartate Amino Transf (AST/SGOT) 21 U/L (15-37) Alanine Aminotransferase (ALT/SGPT) 22 U/L (14-59) Alkaline Phosphatase 78 U/L (46-116) Troponin I Quantitative < 0.017 ng/mL (0.000-0.055) < 0.017 ng/mL (0.000-0.055) < 0.017 ng/mL (0.000-0.055) OB-Axe-Z-Type Natriuretic Peptide 173 pg/mL (0-124) Total Protein 7.2 g/dL (6.4-8.2) Albumin 4.1 g/dL (3.4-5.0) Albumin/Globulin Ratio 1.3 (1.0-1.7) Lipase 152 U/L (73-393) Urine Collection Type Unknown Urine Color Yellow Urine Clarity Clear Urine pH 7.5 Urine Specific [place] 1.020 Urine Protein Negative mg/dL (NEG-TRACE) Urine Glucose (UA) Negative mg/dL (NEG) Urine Ketones (Stick) Trace mg/dL (NEG) Urine Blood Negative (NEG) Urine Nitrite Negative (NEG) Urine Bilirubin Negative (NEG) Urine Urobilinogen Dipstick 0.2 mg/dL (0.2 mg/dL) Urine Leukocyte Esterase Negative (NEG) Urine RBC Occ /HPF (0-2) Urine WBC Occ /HPF (0-4) Urine Squamous Epithelial Cells Occ /LPF Urine Amorphous Sediment Present /HPF Urine Bacteria 0 /HPF (0-FEW) Urine Mucus Mod /LPF ASSESSMENT/PLAN ASSESSMENT/PLAN 1. Chest pain: UA features 2. Presyncope: likely from multiple NTG SL use 3. HTN: controlled 4. HLP 5. Hypothyroidism Recommendations 1. TTE today, TSH, lipids 2. LHC today, risks and benefits discussed, agreeable to proceed. TERESO ZULUAGA MD 03/14/18 1431: CARDIAC CONSULT ASSESSMENT/PLAN ASSESSMENT/PLAN Pt. seen and examined. Agree with above [facility]MER note. No clear source of cardiac chest pain. Cath w/o critical lesions. Consider anxiety/depression from recent loss of her mother. No further cardiac testing. Thanks. JASVIR GODOY APRN Mar 14, 2018 10:28 TERESO ZULUAGA MD Mar 14, 2018 14:31
[2018-03-14 10:51] LABS: CHOLESTEROL/HDL RATIO 2.5
--- NOTE | 2018-03-14 11:10 | CARD ---
MR#: [id number] Date of Study: 03/14/2018 Ordering Physician: JASVIR GODOY, Referring Physician: SHAW KHAN Tech: Olivia Xie BETTY APPROVED REPORT EXAM: Two-dimensional and M-mode echocardiogram with Doppler and color Doppler. Other Information Quality : GoodHR: 64bpm Rhythm : NSR INDICATION Chest Pain 2D DIMENSIONS RVDd2.8 (2.9-3.5cm)Left Atrium(2D)3.8 (1.6-4.0cm) IVSd0.8 (0.7-1.1cm)Aortic Root(2D)2.4 (2.0-3.7cm) LVDd5.2 (3.9-5.9cm)LVOT Diameter1.9 (1.8-2.4cm) PWd1.0 (0.7-1.1cm)LVDs3.8 (2.5-4.0cm) FS (%) 26.7 %SV67.6 ml LVEF(%)51.8 (>50%) M-Mode DIMENSIONS Left Atrium(MM)3.75 (2.5-4.0cm)Aortic Root2.64 (2.2-3.7cm) Aortic Valve AoV Peak Mahesh.116.3cm/sAoV VTI35.9cm AO Peak GR.5.4mmHgLVOT Peak Mahesh.71.1cm/s AO Mean GR.4mmHgAVA (VMAX)1.78cm2 DAYO (VTI)1.80cm2 Mitral Valve MV E Bbogkktn63.3cm/sMV E Peak Gr.127mmHg MV DECEL [id number] A Uqjilgiq41.6cm/s MV E Mean Gr.2mmHgE/A Ratio0.9 MV A Vblmrqyk814wh Pulmonary Valve PV Peak Malnvueu85.3cm/s Tricuspid Valve TR P. Jzmrmukg133zn/sRAP JOOHMLIS8opYh TR Peak Gr.98gjDhMRSE33vgCg Pulmonary Vein S1 Xxzxoilw77.4cm/sD2 Otstscle10.5cm/s PVa nthmglbe03have LEFT VENTRICLE The left ventricle is normal size. There is normal left ventricular wall thickness. Left ventricle sy stolic function is normal. The Ejection Fraction is 55%. There is normal LV segmental wall motion. RIGHT VENTRICLE The right ventricle is normal size. There is normal right ventricular wall thickness. The right ventr icular systolic function is normal. ATRIA The left atrium is borderline dilated. The right atrium size is normal. The interatrial septum is int act with no evidence for an atrial septal defect or patent foramen ovale as noted on 2-D or Doppler i maging. AORTIC VALVE The aortic valve is normal in structure and function. The aortic valve is trileaflet. Doppler and Col or Flow revealed no significant aortic regurgitation. There is no significant aortic valvular stenosi s. MITRAL VALVE The mitral valve is normal in structure and function. There is no evidence of mitral valve prolapse. There is no mitral valve stenosis. Doppler and Color-flow revealed moderate mitral regurgitation. TRICUSPID VALVE The tricuspid valve is normal in structure and function. Doppler and Color Flow revealed trace tricus pid regurgitation. The PA pressure was estimated at 29 mmHg. There is no tricuspid valve prolapse or vegetation. There is no tricuspid valve stenosis. PULMONIC VALVE The pulmonary valve is normal in structure and function. Doppler and Color Flow revealed mild pulmoni c valvular regurgitation. There is no pulmonic valvular stenosis. GREAT VESSELS The aortic root is normal in size. The ascending aorta is normal in size. The IVC is normal in size a nd collapses >50% with inspiration. PERICARDIAL EFFUSION There is no evidence of significant pericardial effusion. Critical Notification Critical Value: No <Conclusion> Left ventricle systolic function is normal. The Ejection Fraction is 55%. There is normal LV segmental wall motion. Moderate mitral regurgitation. Trace tricuspid regurgitation. The PA pressure was estimated at 29 mmHg. There is no evidence of significant pericardial effusion. Signed by : Aristeo Baron, Electronically Approved : 03/14/2018 11:08:02
[2018-03-14] MEDS ORDERED: ASPIRIN ENTERIC COATED 81 MG TABLET.DR. PO SCH (12:00)
[2018-03-14] MEDS ORDERED: IODIXANOL 320 MG/ML 100 ML VIAL. ONE (12:36)
[2018-03-14] MEDS ORDERED: LIDOCAINE 1% PF 2 ML VIAL. ONE ×2 (12:36→12:39)
[2018-03-14] MEDS ORDERED: fentaNYL PF VIAL 100 MCG/2 ML VIAL ONE (12:58)
[2018-03-14] MEDS ORDERED: VERAPAMIL 5 MG/2 ML VIAL. ONE (12:58)
[2018-03-14] MEDS ORDERED: HEPARIN for IV BOLUS 10,000 UNIT/10 ML VIAL. ONE (12:58)
[2018-03-14] MEDS ORDERED: NITROGLYCERIN 200 MCG/2 ML SYRINGE FOR CATH/VASC LAB. ONE ×2 (12:58→13:33)
[2018-03-14] MEDS ORDERED: MIDAZOLAM HCL/PF 2 MG/2 ML VIAL. ONE (12:58)
[2018-03-14] MEDS ORDERED: IODIXANOL 320 MG/ML 100 ML VIAL. IART ONE (13:45)
[2018-03-14] MEDS ORDERED: HEPARIN for IV BOLUS 10,000 UNIT/10 ML VIAL. IART ONE (13:45)
[2018-03-14] MEDS ORDERED: NITROGLYCERIN 200 MCG/2 ML SYRINGE FOR CATH/VASC LAB. IART ONE (13:45)
[2018-03-14] MEDS ORDERED: MIDAZOLAM HCL/PF 2 MG/2 ML VIAL. IV ONE (13:45)
[2018-03-14] MEDS ORDERED: fentaNYL PF VIAL 100 MCG/2 ML VIAL IV ONE (13:45)
[2018-03-14] MEDS ORDERED: CONTRAST GIVEN. MC PRN (13:45)
[2018-03-14] MEDS ORDERED: VERAPAMIL 5 MG/2 ML VIAL. IART ONE (13:45)
[2018-03-14] MEDS ORDERED: LIDOCAINE 1% PF 2 ML VIAL. INJ ONE (13:45)
[2018-03-14] MEDS ORDERED: NITROGLYCERIN 200 MCG/2 ML SYRINGE FOR CATH/VASC LAB. ICAR ONE (13:45)
--- NOTE | 2018-03-14 14:44 | CARD ---
MR#: [id number] Date of Study: 03/14/2018 Ordering Physician: JASVIR GODOY, Referring Physician: SHAW KHAN Tech: Sharla Morales RTR APPROVED REPORT Technologist: Sharla Morales RTR Nurse: Allyssa Crowder R.N. Procedure(s) performed: Moderate Sedation time:30 minutes CSHA: 4 [facility], Coronary angiography, Left ventriculography HISTORY : The patient is a 72 year-old female with a history of . INDICATION The indication(s) include : unstable angina . PROCEDURE NARRATIVE INFORMED CONSENT: After explaining the risks and benefits of the procedure and alternatives, informed consent was obtained. The patient was brought electively to the cardiac catheterization lab. A timeout was performed confi rming the patient's name, date of , procedure, and site of procedure. All necessary personnel w ere wearing the appropriate protective equipment and radiation monitor devices. (See nursing notes for medications administered). ACCESS: The right wrist was sterilely prepped and draped in the usual fashion. The right wrist was infiltrat ed with 1 mL of 2% lidocaine for subcutaneous anesthesia. A 6 [place] Terumo glide sheath was inserte d into the right radial artery without difficulty. CORONARY ANGIOGRAPHY: Right and left coronary angiography was performed using a 6Fr TIG 4.0 catheter. Left ventricular en d diastolic pressure was obtained with a pigtail catheter and pullback was performed after left ventr iculography. All catheter exchanges and advancements were performed over a guidewire. CLOSURE: At case completion the right radial sheath was removed and a Terumo radial band was applied with 13 m l of air. COMPLICATIONS: The patient tolerated the procedure well and there were no immediate complications. FINDINGS: HEMODYNAMICS: LVEDP 20 mm Hg No gradient on LV to aortic pullback. AO: 128/78 LEFT VENTRICULOGRAM: EF 55% Anterobasal: Normal. Anterolateral: Normal Apical: Normal Diaphragmatic: Normal Posterobasal: Normal *No significant mitral regurgitation. CORONARY ANGIOGRAPHY: LM is a large caliber vessel with normal angiographic appearance. LAD is a large caliber vessel with a proximal 30% stenosis. LCx is a moderate caliber non-dominant vessel with normal angiographic appearance. OM1 is a moderate caliber vessel with normal angiographic appearance. RCA is a large caliber dominant vessel with a mid 40% stenosis. RPDA and RPL are small caliber vessels with normal angiographic appearance. Conclusion 1. Mildly elevated left sided filling pressures consistent with mild diastolic dysfunction. 2. Mild non-obstructive CAD Recommendations Aggressive Medical Therapy Signed by : Anthony Sousa, Electronically Approved : 03/14/2018 14:41:57
[2018-03-14] MEDS ORDERED: 0.9 % SODIUM CHLORIDE 10 ML DISP.SYRIN. IV PRN (14:45)
[2018-03-14] MEDS ORDERED: NITROGLYCERIN SUBLINGUAL 0.4 MG BOTTLE OF 25. SL PRN (14:45)
--- NOTE | 2018-03-14 15:04 | NUR ---
SS following for discharge planning. SS reviewed pt chart. Pt is from home with spouse and currently on room air. No discharge needs noted at this time. SS will continue to follow for pending discharge needs.
--- NOTE | 2018-03-14 19:20 | NUR ---
Discharge Note: EDUARDO LIPSCOMB 2 NORTH Right wrist soft no bleeding. TR band removed and bandaid applied. Arm board remains and patient instructed to wear for 24 hours. Instructions given on what to do if site bleeds. Discharge instructions and discharge home medications reviewed with patient and a copy given. All questions have been answered and understanding verbalized. The following instructions and handouts were given: Post cath instructions for home. Follow ups for Merry and Appl. Discontinued lines and drains: Left A/C removed. Patient discharged to home with via wheelchair.
[2018-03-14] MEDS ORDERED: ATORVASTATIN CALCIUM 20 MG TABLET PO SCH (21:00)
--- NOTE | 2018-03-15 09:09 | DS ---
DATE OF DISCHARGE: 03/14/2018 PRIMARY DIAGNOSIS: Noncardiac chest pain. ADDITIONAL DIAGNOSES: Anxiety, possible panic attack, hypertension, hypothyroidism, history of breast cancer. CHIEF COMPLAINT AND HISTORY OF PRESENT ILLNESS: This 72-year-old white female admitted through the Emergency Room on the evening of admission with chest pain described as like an elephant sitting on her chest. She had been getting some shortness of breath with exertion at home for some time. She had negative outpatient stress testing, negative outpatient lung evaluation. It was planned to do an outpatient cath following 2 days after the day of this admission with a feeling that she may have had a false negative stress testing as her symptoms were consistent with angina with relief with nitroglycerin, very bad family history for the same. SUMMARY OF STAY: The patient was admitted. Troponins were negative. She was taken for heart catheterization with nonsignificant coronary artery disease and mild diastolic dysfunction. With that date it was felt she could be dismissed with outpatient followup and we are going to pursue a treatment more down the lines of panic attack at this point in time as an outpatient. DISPOSITION: The patient is discharged to home. Regular diet. Activity as tolerated. Office in the next few days. She will be discharged on her regular home medications. SHAW KHAN MD DR: ZHANNA/rangel JOB#: [id number] / [id number]
== END 2018-03-14 19:00 | disposition home or self-care (01) | DRG 287 ==
LOC: ER 18:19 → 2 NORTH 19:55
PROVIDERS: ADMIT Family Medicine; ATTEND Family Medicine
PROC: 4A023N7 Measurement of Cardiac Sampling and Pressure, Left Heart, Percutaneous Approach (ICD-10-PCS; principal; 2018-03-14)
PROC: B2111ZZ Fluoroscopy of Multiple Coronary Arteries using Low Osmolar Contrast (ICD-10-PCS; 2018-03-14)
PROC: B2151ZZ Fluoroscopy of Left Heart using Low Osmolar Contrast (ICD-10-PCS; 2018-03-14)
DX: I25.110 Atherosclerotic heart disease of native coronary artery with unstable angina pectoris (principal); E89.0 Postprocedural hypothyroidism; F41.9 Anxiety disorder, unspecified; E78.5 Hyperlipidemia, unspecified; K21.9 Gastro-esophageal reflux disease without esophagitis; M19.90 Unspecified osteoarthritis, unspecified site; F32.9 Major depressive disorder, single episode, unspecified; I10 Essential (primary) hypertension; Z85.3 Personal history of malignant neoplasm of breast; Z90.11 Acquired absence of right breast and nipple; Z88.0 Allergy status to penicillin; Z82.49 Family history of ischemic heart disease and other diseases of the circulatory system
CPT/HCPCS: 36415; 71045; 80053; 80061; 81001; 83690; 83735; 83880; 84443; 84484; 85025; 85610; 93005; 93306; 93458; 94010; 94729; 96360; 99152; 99153; C1769; C1892; J1644; J2250; J3010; J3490; J7030; 99285-25

== ENCOUNTER → 2019-01-30 | Outpatient (CLI) | payer MEDICARE, OTHER ==
[2018-03-14 15:02] VITALS: BP 125/62
[~2019-01-30] MED LIST changes: +ASCO-72 PO; +LOSA100T2 PO; +SIMV10TA15 PO; -SIMV10TA3 PO; +SUCR1TAB PO
--- NOTE | 2019-01-30 11:26 | RAD ---
MRI Lumbar Spine without contrast History: Chronic low back pain, bilateral leg radiculopathy Technique: Multiplanar, multi sequential noncontrast MR imaging was performed of the lumbar spine. Comparison: None Findings: Lumbar vertebral body stature is maintained. There is minimal posterior subluxation of L3 relative to L4 and L2 relative to L3, negligible anterior spondylolisthesis L5-S1. There is fairly advanced L2-3 degenerative disc disease, also more eccentric to the right at L4-5, moderate to severe degenerative disc disease at L3-4 and minimally L5-S1. There is amorphous L2-3 and very mild L3-4 and L4-5 endplate edema likely reactive/degenerative in etiology. 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 Conus terminates at T12. There is very mild dextroscoliosis centered near L1. L1-L2: There is mild buckling of the ligamentum flavum. Spinal canal and the neural foramina are adequate. L2-L3: There is broad posterior disc osteophyte complex and minimal bulge. There is minimal buckling of the ligamentum flavum and facet hypertrophic change. There is minimal narrowing of the far lateral recesses greater on the right. Central canal is adequate. Neural foramina are adequate. L3-L4: There is minimal disc osteophyte complex superimposed on the posteriorly subluxed L3 vertebral body margin, mild indentation upon the ventral thecal sac. There is minimal buckling of the ligamentum flavum. Neural foramina are adequate. There is mild narrowing of the far right lateral recess. L4-L5: There is very minimal disc osteophyte complex slightly indenting the ventral thecal sac in the right lateral recess. There is very mild narrowing of the far right lateral recess. Neural foramina are adequate. L5-S1: There is prominence of epidural fat in the lateral recesses bilaterally, preserved central subarachnoid space. Spinal canal and neural foramina are adequate. There is left posterior annular tear. Impression: 1. There is no significant lumbar spinal stenosis, minimal narrowing of the far lateral recesses as described on the right at L4-5 and L3-4 and bilaterally greater on the right at L2-3. There is no significant lumbar neural foramina compromise. There is degenerative disc disease greatest at L2-3 and L3-4, variable endplate edema likely reactive/degenerative in etiology. There is multilevel mild abnormal alignment as stated. Electronically signed by: Adi Evans MD (01/30/2019 11:23 AM) [id number]
== END | disposition home or self-care (01) ==
LOC: MRI 09:59
PROVIDERS: ATTEND Family Medicine
DX: M43.17 Spondylolisthesis, lumbosacral region (principal); M51.37 Other intervertebral disc degeneration, lumbosacral region; M25.78 Osteophyte, vertebrae; G89.29 Other chronic pain
CPT/HCPCS: 72148

== ENCOUNTER → 2019-09-24 | Outpatient (CLI) | payer MEDICARE ==
[2018-03-14 15:02] VITALS: BP 125/62
--- NOTE | 2019-09-25 14:53 | RAD ---
DATE: 09/24/2019 10:21 AM EXAM: MAMMO KENA SCREEN LT HISTORY: Screening Personal history right mastectomy for breast cancer 2007 COMPARISON: 09/14/2017 and 09/17/2018 CC and MLO views of the left breast were performed. Left breast tomosynthesis was performed in CC and MLO projections. FINDINGS: Breast Density: HETERO The breast parenchyma Is heterogeneously dense, which could reduce sensitivity of mammography. Breast parenchyma level C Spiculated 9.5 mm mass with coarse central calcification has developed in the central posterior left breast approximately 7 cm along the posterior nipple line in the deep subareolar breast. This needs additional imaging with targeted ultrasound as well as ultrasound of the left axilla. This is best visualized on the CC tomographic image series on image 38 and on the MLO tomographic series on image 41. IMPRESSION: Left breast mass, findings for which additional imaging is advised. BI-RADS CATEGORY: 0 INCOMPLETE: NEEDS ADDITIONAL IMAGING EVALUATION AND/OR PRIOR MAMMOGRAMS FOR COMPARISON. RECOMMENDED FOLLOW-UP: ADD ADDITIONAL IMAGING The patient will be contacted to return for additional imaging and a supplemental report will follow. PQRS compliance statement: Patient information was entered into a reminder system with a target due date for the next mammogram. Mammography is a sensitive method for finding small breast cancers, but it does not detect them all and is not a substitute for careful clinical examination. A negative mammogram does not negate a clinically suspicious finding and should not result in delay in biopsying a clinically suspicious abnormality. "Our facility is accredited by the [employer] Mammography Program."
== END | disposition home or self-care (01) ==
LOC: MAMMO 10:14
PROVIDERS: ATTEND Family Medicine
DX: Z12.31 Encounter for screening mammogram for malignant neoplasm of breast (principal); N64.89 Other specified disorders of breast
CPT/HCPCS: 77063; 77067

== ENCOUNTER → 2019-10-02 | Outpatient (CLI) | payer MEDICARE ==
[2018-03-14 15:02] VITALS: BP 125/62
--- NOTE | 2019-10-02 10:30 | RAD ---
EXAM: Left breast ultrasound. HISTORY: Indeterminate findings on mammographic screening. Left breast sonography is requested. COMPARISON: 09/24/2019. FINDINGS: Sonographic evaluation of the left breast was performed. At the 11:00 position 2 cm from the nipple, there is a hypoechoic irregular antiparallel mass measuring 7 x 6 x 6 mm. This corresponds with the mammographic region of architectural distortion. At the 6:00 position 6 cm from the nipple, and oval hypoechoic mass measures 8 x 7 x 4 mm and likely represents a complicated cyst or apocrine metaplasia. Deep to the nipple, there are a few dilated ducts without a clear intraductal mass. Images of the left axilla reveal no pathologic-appearing lymph nodes. IMPRESSION: 1. BI-RADS Category 5: Highly suggestive of malignancy--appropriate action should be taken. 2. Recommend ultrasound-guided biopsy of the mass at the left 11:00 position. Electronically signed by: Nancy Dotson MD (10/02/2019 10:27 AM) [id number]
== END | disposition home or self-care (01) ==
LOC: US 11:29
PROVIDERS: ATTEND Family Medicine
DX: R92.8 Other abnormal and inconclusive findings on diagnostic imaging of breast (principal); N63.23 Unspecified lump in the left breast, lower outer quadrant
CPT/HCPCS: 76641

== ENCOUNTER → 2019-10-14 | Outpatient (CLI) | payer MEDICARE ==
[2018-03-14 15:02] VITALS: BP 125/62
--- NOTE | 2019-10-14 11:56 | RAD ---
Examination: 1. Ultrasound-guided left breast core needle biopsy. 2. Left postprocedure mammogram. INDICATION: 74-year-old woman with remote history of right mastectomy for breast cancer recalled from screening for suspicious mass in the deep left breast, recommended for biopsy with ultrasound guidance. TECHNIQUE AND FINDINGS: Informed consent was obtained and an appropriate procedural pause observed. Using standard sterile technique, ultrasound guidance and local anesthesia, two 14-gauge core biopsy samples of the mass in the deep subareolar left breast at the 11:00 position approximately 2 cm from the nipple were acquired and an S-shaped biopsy marker deployed. Hemostasis was ensured with direct breast compression for several minutes and a postprocedure mammogram was obtained. The postprocedure mammogram showed satisfactory positioning of the S-shaped biopsy marker at the periphery of the targeted mass with no postbiopsy hematoma. There are no apparent complications. The puncture site was dressed and postprocedure instructions were reviewed. She was subsequently discharged in stable condition to follow up with her referring physician. IMPRESSION: Successful ultrasound-guided left breast core needle biopsy of an 8 mm mass in the deep retroareolar left breast at the approximate 11:00 position 2 cm from the nipple. Pathology results are pending. An addendum will be issued once pathology results become available. Electronically signed by: Kevin Pelaez MD (10/14/2019 11:54 AM) [id number]
--- NOTE | 2019-10-15 16:06 | PATHOLOGY ---
[facility] Accession Number: [id number] . 01 Material submitted: . breast - LEFT BREAST MASS, 11:00, 2MCFN. Modifiers: left, 11:00 . 01 Clinical history: . ABNORMAL LEFT MAMMOGRAM . 02 Diagnosis: Breast tissue, left breast mass 11:00 needle biopsies: - INVASIVE DUCTAL CARCINOMA, HISTOLOGIC GRADE 2, WITH FOCAL LOBULAR FEATURES. SEE COMMENT. (JPM:kiana; 10/15/2019) [facility] [place] 10/15/2019 1244 Local . 02 Comment: Sections of the left breast mass at 11:00 needle biopsy reveal an invasive mammary carcinoma. The tumor cells are present in nests and cords and show only focal tubule formation. The tumor is associated with a reactive desmoplastic stroma. The tumor cells have mild to focal moderate amounts of eosinophilic cystoplasm, and show mild to focal moderate nuclear pleomorphism. There are mitotic figures present. The invasive carcinoma measures up to 8 mm in greatest dimension on the glass slide. There is no lymphovascular tumor invasion. There are no tumor associated calcifications. The morphologic findings are supportive of the diagnosis of an invasive ductal carcinoma with focal lobular features, histologic grade 2. Breast prognostic studies will be obtained on block A2, the results of which will be reported separately. The case is also examined by Dr. Dugan, who concurs with the diagnosis. (JPM:kiana; 10/15/2019) . 02 Electronically signed: . William Avalos MD, Pathologist NPI- [id number] . 01 Gross description: . Received in formalin labeled "Hyun Corona, left breast 11:00 2 cm FTN" are two cylindrical yellow-nunez soft tissue cores measuring in aggregate 1.7 x 0.4 x 0.2 cm. The specimen is submitted entirely in cassettes A1-A2. The specimen is removed from the patient at 0933, placed in formalin at 0935, and removed from formalin at 2340 on October 14, 2019. [place] [place] [facility] 10/14/2019 1812 Local . 02 Pathologist provided ICD-10: C50.912 . 02 CPT . 462781 Specimen Comment: A courtesy copy of this report has been sent to [phone], [phone] Specimen Comment: [id number] Specimen Comment: Report sent to / DR KHAN Performed at: 01 [facility] [address], [place] [id number] MD Steve Nunez MD Phone: [phone] Performed at: 02 [facility] [address] [place], [place] [id number] MD William Avalos MD Phone: [phone]
== END | disposition home or self-care (01) ==
LOC: US 08:29
PROVIDERS: ATTEND Family Medicine
DX: C50.912 Malignant neoplasm of unspecified site of left female breast (principal); Z88.0 Allergy status to penicillin; Z88.8 Allergy status to other drugs, medicaments and biological substances; Z79.82 Long term (current) use of aspirin; Z79.899 Other long term (current) drug therapy; Z82.49 Family history of ischemic heart disease and other diseases of the circulatory system
CPT/HCPCS: 19083; 77065; 88305; 88361; C1713; 19081; 76942

== ENCOUNTER → 2019-10-30 | Outpatient (CLI) | payer MEDICARE ==
[2018-03-14 15:02] VITALS: BP 125/62
[~2019-10-30] MED LIST changes: +DOCU50CA9 PO; +ERGO500027 PO; +FEXO60TA25 PO
== END | disposition home or self-care (01) ==
LOC: LAB 13:36
PROVIDERS: ATTEND Surgery
DX: Z01.812 Encounter for preprocedural laboratory examination (principal); Z20.828 Contact with and (suspected) exposure to other viral communicable diseases; C50.912 Malignant neoplasm of unspecified site of left female breast; Z88.0 Allergy status to penicillin; Z88.8 Allergy status to other drugs, medicaments and biological substances
CPT/HCPCS: U0003-CS

== ENCOUNTER 2019-11-03 11:05 | Observation (INO) | payer MEDICARE ==
[2019-11-03] VITALS (9 sets, daily range): BP systolic 113–153; BP diastolic 48–60
[~2019-11-03] VITALS: Ht 160 cm; Wt 77.7 kg
[~2019-11-03 11:05] MED LIST changes: +HYDROmorphone 2 MG/ML VIAL IV PRN; +IV RINGERS,LACTATED 1000ML 1,000 ML IV SCH; +LIDOCAINE 1% PF 2 ML VIAL. ID PRN; +LIDOCAINE 2% PF 5 ML VIAL. ONE; +MORPHINE SULFATE 2 MG/ML VIAL. IV PRN; +ONDANSETRON PF 4 MG/2 ML VIAL. IV PRN; +PROCHLORPERAZINE 10 MG/2 ML VIAL. IV PRN; +PROPOFOL 10 MG/ML (20ML) VIAL. IV ONE; +fentaNYL PF VIAL 100 MCG/2 ML VIAL IV PRN; +fentaNYL PF VIAL 100 MCG/2 ML VIAL ONE
[2019-11-03] MEDS ORDERED: SCOPOLAMINE 1.5MG PATCH. TD ONE (11:30)
[2019-11-03] MEDS ORDERED: ISOSULFAN BLUE 1% 50 MG/5 ML VIAL. SQ ONE (13:02)
[2019-11-03] MEDS ORDERED: DEXAMETHASONE SOD PHOS 4 MG/ML VIAL ONE (13:47)
[2019-11-03] MEDS ORDERED: ONDANSETRON PF 4 MG/2 ML VIAL. ONE (13:47)
[2019-11-03] MEDS ORDERED: IV NORMAL SALINE 1000ML BAG 1,000 ML IV SCH (15:44)
[2019-11-03] MEDS: IV 1/2 NORMAL SALINE 1,000 ML IV SCH (15:44)
[2019-11-03] MEDS ORDERED: ONDANSETRON PF 4 MG/2 ML VIAL. IVP PRN (15:45)
[2019-11-03] MEDS ORDERED: HYDROcodone/APAP 5/325MG 1 TAB TABLET PO PRN (15:45)
[2019-11-03] MEDS ORDERED: NALOXONE 0.4 MG/ML VIAL. IV PRN (15:45)
[2019-11-03] MEDS ORDERED: 0.9 % SODIUM CHLORIDE 10 ML DISP.SYRIN. IV PRN (15:45)
[2019-11-03] MEDS ORDERED: HYDROmorphone 2 MG/ML VIAL IV PRN (15:45)
[2019-11-03] MEDS ORDERED: SEVOFLURANE > 120 MINUTES. IH ONE (15:54)
--- NOTE | 2019-11-03 15:54 | PDOC4 ---
Operative Note Operative Note Operative Note: Preoperative Diagnosis: Left breast cancer Postoperative Diagnosis: Same Procedure: Left simple mastectomy with sentinel lymph node biopsy Surgeon: Jose [employer] Merchandiser: Gulshan MORENO, Buster MORENO Anesthesia: General EBL: 75 mL Specimen: Paisley lymph nodes 1 through 4 to pathology, left breast stitch at 12:00 to pathology Drains: 19 Upper Sorbian round Kelvin drain to chest wall Complications: None Indication: The patient is a 74-year-old female who was recently diagnosed with left breast cancer. She requests a complete mastectomy and we plan to incorporate a sentinel lymph node biopsy. The risks of surgery were discussed which include bleeding, infection, wound healing problems, scar tissue, pain, anesthetic risk, potential need for additional surgery procedure. She understands and would like to proceed. Description: The patient was taken to the operating room and placed supine on the operating table. General anesthesia was performed. The left chest and axilla were prepped with ChloraPrep and draped in a standard surgical manner. 5 mL of Lymphazurin were injected deep to the nipple areolar complex. Several minutes were allowed to elapse. An elliptical tracing was made around the nipple areole extending from the medial chest to the axilla for the planned incision. The superior lateral aspect of the tracing was incised with a scalpel. Cautery dissection was carried down into the axilla. Using the C-Trak probe there were 4 separate areas of increased nuclear uptake corresponding to lymph nodes. Each of these also stained blue. All were harvested and sent to pathology labeled sentinel lymph nodes 1 through 4. Frozen section of these were negative for malignancy. The pathologist also indicated that 2 lymph nodes were present in 1 of the specimens. With a scalpel the remainder of the skin incision was made at the elliptical tracing. Cautery dissection was used to develop the flaps. The superior flap was developed first the skin from the deeper breast parenchyma. The dissection was carried superiorly to the level just below the clavicle. In a similar manner the inferior flap was developed which included the inframammary fold. In a medial to lateral fashion the breast was taken off of the chest wall with cautery. Several small bleeding spots were controlled with cautery. A stitch was used to mel the 12 o'clock position and it was sent to pathology. Hemostasis was good. A 19 Upper Sorbian round Kelvin drain was left in the chest wall which exited inferiorly. This was secured to the skin with 2-0 silk. The subcutaneous tissue was closed with 3-0 Vicryl and skin approximated with 4-0 Monocryl. A sterile OpSite dressing was applied. The patient tolerated the procedure well and sent to recovery room in stable condition. At the end of the case all counts were correct. CECILY RUIZ MD Nov 03, 2019 15:54
[2019-11-03] MEDS ORDERED: ALPRAZolam 0.25 MG TABLET PO PRN (16:00)
[2019-11-03] MEDS ORDERED: fentaNYL PF VIAL 100 MCG/2 ML VIAL ONE (16:23)
[2019-11-03] MEDS: fentaNYL PF VIAL 100 MCG/2 ML VIAL IV PRN ×2 (16:30→16:39)
[2019-11-03] MEDS: SUCRALFATE 1 GM TABLET. PO SCH (16:30)
[2019-11-03] MEDS: HYDROcodone/APAP 5/325MG 1 TAB TABLET PO PRN ×2 (17:29→21:39)
--- NOTE | 2019-11-03 17:30 | RAD ---
CLINICAL HISTORY: LEFT BREAST CANCER / COMPARISON: None available. TECHNIQUE: Radiopharmaceutical Dose: 0.989 mCi Tc99m tilmanocept (Lymphoseek) intradermal A single intradermal injection was performed in the periareolar region of the left breast. The patient was then discharged from the radiology department in good condition. Electronically signed by: Jaylen Cody MD (11/03/2019 5:27 PM) [id number]
[2019-11-03] MEDS ORDERED: SIMVASTATIN 10 MG TABLET PO SCH (21:00)
[2019-11-03] MEDS ORDERED: traZODone 50 MG TABLET. PO SCH (21:00)
[2019-11-04 03:00] VITALS: BP 112/56
[2019-11-04] MEDS: IV 1/2 NORMAL SALINE 1,000 ML IV SCH (04:14)
[2019-11-04] MEDS: HYDROcodone/APAP 5/325MG 1 TAB TABLET PO PRN (04:31)
[2019-11-04] MEDS ORDERED: LEVOTHYROXINE 50 MCG TABLET PO SCH (06:00)
[2019-11-04] MEDS: SUCRALFATE 1 GM TABLET. PO SCH ×2 (06:14→11:04)
[2019-11-04 07:00] VITALS: BP 122/57
[2019-11-04] MEDS ORDERED: HYDR-2761 PO (08:37)
--- NOTE | 2019-11-04 08:40 | DISCH ---
DISCHARGE INSTRUCTIONS Condition on Discharge Condition on Discharge: Stable Activity After Discharge Activity Instructions for Disc: Avoid exertion Bathing Instructions: Shower-keep dressing dry Lifting Instructions after Dis: No pulling or pushing, Do not lift >10 pounds, Add. restrict see below Driving Instructions after Dis: Do not drive today, Other, see below Diet after Discharge Diet after Discharge: Regular Wound Incision Care Other wound/incision instructi: leave dressing in place until follow up, drain care as instructed Checks after Discharge Checks after discharge: Check blood press - daily Contacting the after DC Call your doctor for: Concerns you may have Follow-Up Follow up with: Dr Garcia 1 week, call to schedule [phone]--bring drain log with you CASSANDRA CHERRY APRN Nov 04, 2019 08:40
--- NOTE | 2019-11-04 08:43 | PDOC ---
CASSANDRA CHERRY APRN 11/04/19 0843: SURGICAL PROGRESS NOTE DATE: 11/04/19 TIME: 08:42 Subjective tolerating diet sore with movement no nausea urinating Vital Signs Vital Signs Date Time Temp Pulse Resp B/P (MAP) Pulse Ox O2 Delivery O2 Flow Rate FiO2 11/04/19 07:00 98.2 70 18 122/57 (78) 97 Room Air 98.2 11/04/19 04:31 0.5 I&O Intake and Output 11/04/19 07:00 Intake Total 2550 ml Output Total 115 ml Balance 2435 ml Intake Oral 400 ml IV Total 2150 ml Output Drainage Total 40 ml Estimated Blood Loss 75 ml # Voids 3 General: Alert, Oriented X3, Cooperative, No acute distress Skin: Other (left breast dressing intact, drain serosang) Assessment/Plan plan home today drain teaching FU 1 week Justicifation of Admission Dx: Justifications for Admission: Justification of Admission Dx: Yes Comments: breast cancer CECILY RUIZ MD 11/04/19 0856: SURGICAL PROGRESS NOTE Assessment/Plan Agree with above CASSANDRA CHERRY APRN Nov 04, 2019 08:43 CECILY RUIZ MD Nov 04, 2019 08:56
--- NOTE | 2019-11-04 08:45 | PDOC3 ---
Discharge Summary Visit Information Date of Admission: Nov 03, 2019 Date of Discharge: Nov 04, 2019 Admitting Diagnosis: left breast cancer Final Diagnosis left breast cancer Brief Hospital Course Allergies Allergies Coded Allergies Type Severity Reaction Last Updated Verified Penicillins Allergy Intermediate hives 11/03/19 Yes metronidazole Allergy Intermediate rash 11/03/19 Yes morphine Allergy Unknown Nausea and Vomiting 10/30/19 Yes Vital Signs Vital Signs Date Time Temp Pulse Resp B/P (MAP) Pulse Ox O2 Delivery O2 Flow Rate FiO2 11/04/19 07:00 98.2 70 18 122/57 (78) 97 Room Air 98.2 11/04/19 04:31 0.5 Brief Hospital Course Ms. Sorto is a 74 old female who underwent Left simple mastectomy with sentinel lymph node biopsy. Postoperatively tolerating diet, ambulating and pain managed. Will discharge home with drain, FU in clinic 1 week Discharge Information Condition at Discharge: Stable Follow Up: Weeks (1) Disposition/Orders: D/C to Home Scheduled Ascorbic Acid (Ascorbic Acid) 500 Mg Tablet, 500 MG PO DAILY, (Reported) Entered as Reported by: ANICETO PATEL on 04/07/13 0942 Last Taken: Unknown Dose on 11/02/19 Last Action: Continued on 11/03/19 1549 by CECILY RUIZ Aspirin (Aspir-Low) 81 Mg Tablet., 81 MG PO DAILY, (Reported) Entered as Reported by: MARK ZACARIAS on 02/03/13 1013 Last Taken: Unknown Dose on 10/27/19 Last Action: Continued on 11/03/19 1549 by CECILY RUIZ Calcium Carbonate/Vitamin D3 (Calcium + Vitamin D Tablet) 1 Each Tablet, 1 EACH PO DAILY, (Reported) Entered as Reported by: MARK ZACARIAS on 02/03/13 1013 Last Taken: Unknown Dose on 11/02/19 Last Action: Converted on 11/03/19 1549 by CECILY RUIZ Docusate Sodium (Stool Softener) 50 Mg Capsule, 1 CAP PO DAILY for constipation for 30 Days, #30 Ref 0 (Reported) Entered as Reported by: TERRANCE TIRADO on 10/30/19 1416 Last Taken: Unknown Dose on 11/02/19 Last Action: HELD on 11/03/19 1549 by CECILY RUIZ Duloxetine Hcl (Cymbalta) 60 Mg Capsule., 60 MG PO DAILY for DEPRESSION, (Reported) Entered as Reported by: Nieves Hussein on 03/13/182156 Last Taken: Unknown Dose on 11/03/1930 Last Action: Converted on 11/03/191548 by CECILY RUIZ Ergocalciferol (Vitamin D2) (Vitamin D2) 1,250 Mcg Capsule, 1,000 MCG PO DAILY for supplement, (Reported) Entered as Reported by: TERRANCE TIRADO on 10/30/19 141 Last Taken: Unknown Dose on 11/02/19 Last Action: HELD on 11/03/191548 by CECILY RUIZ Fexofenadine Hcl (Ana María Allergy) 60 Mg Tablet, 1 TAB PO BID for allergy symptoms for 30 Days, #60 Ref 0 (Reported) Entered as Reported by: TERRANCE TIRADO on 10/30/191415 Last Taken: Unknown Dose on 11/02/19 Last Action: HELD on 11/03/191548 by CECILY RUIZ Lactobacillus Acidophilus/Pect (Acidophilus-Pectin Capsule) 1 Each Capsule, 1 EACH PO DAILY for probiotic, (Reported) Entered as Reported by: MARION CARLIN on 03/02/1823 Last Taken: Unknown Dose on 11/02/19 Last Action: HELD on 11/03/191548 by CECILY RUIZ Levothyroxine Sodium (Levothyroxine Sodium) 50 Mcg Tablet, 1 TAB PO DAILY for hypothyroid, #30 Ref 5 (Reported) Entered as Reported by: MARION CARLIN on 03/02/1823 Last Taken: Unknown Dose on 11/03/19 0900 Last Action: Continued on 11/03/191548 by CECILY RUIZ Losartan Potassium (Cozaar) 100 Mg Tablet, 100 MG PO DAILY for HYPERTENSION, (Reported) Entered as Reported by: Nieves Hussein on 03/13/182157 Last Taken: Unknown Dose on 11/03/1930 Last Action: Converted on 11/03/191548 by CECILY RUIZ Multivitamins,Therapeutic (Thera) 1 Each Tablet, 1 EACH PO DAILY, (Reported) Entered as Reported by: MARK ZACARIAS on 02/03/13 1013 Last Taken: Unknown Dose on 10/27/19 Last Action: HELD on 11/03/191548 by CECILY RUIZ Simvastatin (Simvastatin) 10 Mg Tablet, 10 MG PO HS, (Reported) Entered as Reported by: MARK ZACARIAS on 02/03/13 1013 Last Taken: Unknown Dose on 11/02/19 Last Action: Continued on 11/03/19 1549 by CECILY RUIZ Sucralfate (Sucralfate) 1 Gm Tablet, 1 TAB PO TIDAC for GASTRITIS, #90 Ref 11 (Reported) Entered as Reported by: Nieves Hussein on 03/13/18 2157 Last Taken: Unknown Dose on 11/02/19 Last Action: Continued on 11/03/19 1549 by CECILY RUIZ Trazodone Hcl (Trazodone Hcl) 150 Mg Tablet, 150 MG PO QHS, (Reported) Entered as Reported by: ANICETO PATEL on 04/07/13 0941 Last Taken: Unknown Dose on 11/02/19 Last Action: Converted on 11/03/19 1 549 by CECILY RUIZ Scheduled PRN Alprazolam (Alprazolam) 0.25 Mg Tablet, 0.25 MG PO PRN Q6HRS PRN for ANXIETY / AGITATION, Ref 0 (Reported) Entered as Reported by: MARION CARLIN on 03/02/18 0024 Last Taken: Unknown Dose on 11/03/19 0930 Last Action: Continued on 11/03/19 1549 by CECILY RUIZ Hydrocodone Bit/Acetaminophen (Hydrocodone-Apap 5-325 ) 1 Tab Tablet, 1 TAB PO PRN Q4HRS PRN for MILD PAIN 1-3, #30 Ref 0 Prescribed by: Cassandra Gamino on 11/04/19 0837 Discontinued Medications Ascorbic Acid (Vitamin C) 500 Mg Tablet.er, 500 MG PO DAILY for SUPPLEMENT, (Reported) Entered as Reported by: Nieves Hussein on 03/13/18 2141 Last Action: Discontinued on 10/30/19 1413 by TERRANCE Page Cmb No.1/Vit D3/B-6/Fa/B12 (Vitamin D3 1,000 Unit Tablet) 1 Each Tablet, 1 EACH PO DAILY, (Reported) Entered as Reported by: MARK ZACARIAS on 02/03/13 1013 Last Action: Discontinued on 10/30/19 1413 by TERRANCE TIRADO Justicifation of Admission Dx: Justifications for Admission: Justification of Admission Dx: Yes CASSANDRA GAMINO APRN Nov 04, 2019 08:44
[2019-11-04] MEDS ORDERED: ASPIRIN ENTERIC COATED 81 MG TABLET.DR. PO SCH (09:00)
[2019-11-04] MEDS ORDERED: LOSARTAN POTASSIUM 50 MG TABLET. PO SCH (09:00)
[2019-11-04] MEDS ORDERED: ASCORBIC ACID 500 MG TABLET PO SCH (09:00)
[2019-11-04] MEDS ORDERED: DULoxetine HCL 30 MG CAPSULE.DR PO SCH (09:00)
[2019-11-04] MEDS ORDERED: CALCIUM CARB/VIT D3 500/200 TABLET. PO SCH (09:00)
[2019-11-04 11:00] VITALS: BP 167/79
--- NOTE | 2019-11-04 11:45 | NUR ---
SW following. Discussed with RN, pt discharging after lunch with home health. DANAY checked with Penelope Hussein RN if they could accept pt for home health services with Marcie PURDY. Pt accepted with [facility]. RN notified. Penelope Hussein RN will meet with pt prior to discharge. Clinicals and discharge orders faxed by Jovita. Addendum: 11/04/19 at 1235 by EITAN JON Penelope Hussein RN met with pt, discussed with family and RN - pt does not need home health at his time. Pt and have been taught how to do the drain care, and are agreeable with the plan. The drain may be pulled on (11/06/2019) and there would be no HH needs after that. Pt will discharge home with self care.
--- NOTE | 2019-11-04 12:34 | NUR ---
pt is discharged home with home health at 1233 via wheelchair via FREDERICK Bailey. pt is in stable condition. pt has all belongings with her. pt and received discharge instructions and drain teaching and stated they had no further questions for me. pt was sent home with paper and pen for documentation and was instructed to bring her output measurements to her follow up appt. pt was also sent home with a drain measuring cup to measure output. drain sponges, tape and chloroprep was sent home if her MARIAM drain site needed to be changed, also taught on dressing changes. pt instructed not to take a shower or bath until she sees dr ashby but to sponge bath.
== END 2019-11-04 12:34 | disposition home health service (06) ==
LOC: SURG 11:05 → 4 NORTH 16:17
PROVIDERS: ADMIT Surgery; ATTEND Surgery
DX: C50.912 Malignant neoplasm of unspecified site of left female breast (principal)
CPT/HCPCS: 19101; 19307; 38500; 38792; 96360; 96361; A7015; A9520; G0378; G0379; J1100; J1956; J2405; J2704; J3010; J3490; Q9968; 96374

== ENCOUNTER → 2019-12-08 | Outpatient (CLI) | payer MEDICARE ==
[~2019-12-08] MED LIST changes: -HYDROmorphone 2 MG/ML VIAL IV PRN; -IV RINGERS,LACTATED 1000ML 1,000 ML IV SCH; -LIDOCAINE 1% PF 2 ML VIAL. ID PRN; -LIDOCAINE 2% PF 5 ML VIAL. ONE; -MORPHINE SULFATE 2 MG/ML VIAL. IV PRN; -ONDANSETRON PF 4 MG/2 ML VIAL. IV PRN; -PROCHLORPERAZINE 10 MG/2 ML VIAL. IV PRN; -PROPOFOL 10 MG/ML (20ML) VIAL. IV ONE; -fentaNYL PF VIAL 100 MCG/2 ML VIAL IV PRN; -fentaNYL PF VIAL 100 MCG/2 ML VIAL ONE
--- NOTE | 2019-12-08 11:53 | KCIC ---
EXAM: DUAL ENERGY X-RAY ABSORPTIOMETRY (DEXA). HISTORY: Postmenopausal screening. Breast cancer. FINDINGS: The lowest measured T-score is -0.7 in the left femur, based on a bone mineral density of 0.859 g/cm^2. Refer to the worksheets for full detail. No comparison examinations are available. IMPRESSION: Normal. Bone mineral density yields a T-score of -1.0 or greater. Fracture risk is low. FRAX was not calculated. METHODOLOGY: Dual energy x-ray absorptiometry was performed to measure bone mineral density. The following analysis is based on the 2019 Official Positions of the International Society for Clinical Densitometry: Measurements of the hips and the average of L1-L4 are preferred. When the spine and/or hip cannot be feasibly measured or interpreted, or in the setting of hyperparathyroidism, distal radial bone mineral density may be measured. The lumbar spine T-score is based on the average bone mineral density of L1-L4. In the setting of artifact or anatomic abnormality, some lumbar levels may be excluded, and the remaining levels used for calculation. A single lumbar level is not used for diagnosis, and if only a single level is available for assessment, another anatomic site will be used to assign a diagnosis. The hip T-score is based on the bone mineral density measurement of the femoral neck or total proximal femur of either side, whichever is lowest. Bilateral mean values are not used for diagnosis. The forearm T-score is derived from 33% of the distal radius of the nondominant forearm. For postmenopausal and perimenopausal women, and men age 50 or older, of all ethnic groups, T-scores are calculated through comparison of the current measurement with the NHANES III database standard for females aged 20-29 years. The lowest T-score of the evaluated anatomic sites is used to assign a diagnosis based on the World Health Organization densitometric classification. In premenopausal females and males younger than age 50, a Z-score is calculated based on population specific reference data for patient sex and self-reported ethnicity. Electronically signed by: Nancy Dotson MD (12/08/2019 11:50 AM) [id number]
== END ==
LOC: KCIC DEXA 11:13
PROVIDERS: ATTEND Internal Medicine Hematology & Oncology
DX: C50.212 Malignant neoplasm of upper-inner quadrant of left female breast (principal); N95.8 Other specified menopausal and perimenopausal disorders
CPT/HCPCS: 77080

== ENCOUNTER 2020-02-10 19:33 | Emergency (ER) | payer MEDICARE ==
[~2020-02-10] VITALS: Ht 160 cm; Wt 75.0 kg
[2020-02-10 20:36] LABS: BILIRUBIN,URINE NEGATIVE (NEG); CLARITY,URINE CLOUDY; COLOR,URINE YELLOW; NITRITE,URINE NEGATIVE (NEG); PH,URINE 7.5 (<5.0-8.0); PROTEIN,URINE NEGATIVE (NEG-TRACE); UROBILINOGEN,URINE 0.2 mg/dL (0.2 mg/dL)
--- NOTE | 2020-02-10 20:39 | PHYS DOC ---
Past Medical History Past Medical History: Anxiety, Depression, High Cholesterol, Hypertension, Hypothyroid Additional Past Medical Histor: breast cancer Past Surgical History: Cancer Surgery, Tonsillectomy Additional Past Surgical Histo: mastectomy right/LEFT Smoking Status: Never Smoker Alcohol Use: None Drug Use: None General Adult EDM: Chief Complaint: ANXIETY/PANIC ATTACK HPI: HPI: Patient is a 74 year old female with history of anxiety, depression, hypertension, high cholesterol, who presents the ED today to be evaluated for anxiety/panic attacks. Patient states she has history of anxiety with panic attacks for the last 2-1/2 years with shortness of breath when this happens. Patient states today she feels symptoms are worse than normal. Denies any chest pain, denies any suicidal homicidal ideations. She is refusing work-up. She states she took Cymbalta and 0.5 mg of Xanax with no relief. Review of Systems: Review of Systems: Constitutional: Denies fever or chills. [] Eyes: Denies change in visual acuity. [] HENT: Denies nasal congestion or sore throat. [] Respiratory: Reports shortness of breath. Denies cough Cardiovascular: Denies chest pain or edema. [] GI: Denies abdominal pain, nausea, vomiting, bloody stools or diarrhea. [] : Denies dysuria. [] Musculoskeletal: Denies back pain or joint pain. [] Integument: Denies rash. [] Neurologic: Denies headache, focal weakness or sensory changes. [] Endocrine: Denies polyuria or polydipsia. [] Lymphatic: Denies swollen glands. [] Psychiatric: Reports panic attack/anxiety Heart Score: Risk Factors: Risk Factors: DM, Current or recent (<one month) smoker, HTN, HLP, family history of CAD, obesity. Risk Scores: Score 0 - 3: 2.5% MACE over next 6 weeks - Discharge Home Score 4 - 6: 20.3% MACE over next 6 weeks - Admit for Clinical Observation Score 7 - 10: 72.7% MACE over next 6 weeks - Early Invasive Strategies Allergies: Allergies: Allergies Coded Allergies Type Severity Reaction Last Updated Verified Penicillins Allergy Intermediate hives 11/03/19 Yes metronidazole Allergy Intermediate rash 11/03/19 Yes morphine Allergy Unknown Nausea and Vomiting 10/30/19 Yes Physical Exam: PE: Constitutional: Well developed, well nourished, no acute distress, non-toxic appearance. [] HENT: Normocephalic, atraumatic, bilateral external ears normal, oropharynx moist, no oral exudates, nose normal. [] Eyes: PERRLA, EOMI, conjunctiva normal, no discharge. [] Neck: Normal range of motion, no tenderness, supple, no stridor. [] Cardiovascular:Heart rate regular rhythm, no murmur [] Lungs & Thorax: Bilateral breath sounds clear to auscultation [] Abdomen: Bowel sounds normal, soft, no tenderness, no masses, no pulsatile masses. [] Skin: Warm, dry, no erythema, no rash. [] Back: No tenderness, no CVA tenderness. [] Extremities: No tenderness, no cyanosis, no clubbing, ROM intact, no edema. [] Neurologic: Alert and oriented X 3, normal motor function, normal sensory function, no focal deficits noted. [] Psychologic: Depressed mood, tearful, crying Current Patient Data: Vital Signs: Vital Signs Date Time Temp Pulse Resp B/P (MAP) Pulse Ox O2 Delivery O2 Flow Rate FiO2 02/10/20 19:57 97.6 99 16 181/83 (115) 100 Room Air 97.6 EKG: EKG: [] Radiology/Procedures: Radiology/Procedures: [] Course & Med Decision Making: Course & Med Decision Making Pertinent Labs and Imaging studies reviewed. (See chart for details) This is a 74-year-old female patient with history of anxiety/panic attacks who presents to the ED today complaining of a panic attack and anxiety with shortness of breath that is chronic but got worse this evening. She took Xanax and Cymbalta with no relief. She appears depressed, she is crying in the ED. She is refusing work-up. She states her heart is just fine when asked if we can get an EKG. 2037 Azeb from the PAT team is in the ED talking to patient she was given resources and discharged. Laura Disclaimer: Laura Disclaimer: This electronic medical record was generated, in whole or in part, using a voice recognition dictation system. Departure Departure Impression: Primary Impression: Generalized anxiety disorder with panic attacks Disposition: 01 DC HOME SELF CARE/HOMELESS Condition: STABLE Referrals: SHAW KHAN MD (PCP) Follow-up with the resources provided from the emergency room Patient Instructions: Anxiety and Panic Attacks, [id number] Additional Instructions: You were evaluated in the emergency room for anxiety and panic attacks. Please follow-up with the resources provided to you from the emergency room. LIYA KRISHNA APRN Feb 10, 2020 20:39
[2020-02-10 20:42] LABS: BARBITURATES NEG (NEG); BENZODIAZEPINES POS (NEG); CANNABINOIDS NEG (NEG); COCAINE NEG (NEG); METHADONE NEG (NEG); OPIATES NEG (NEG); PHENCYCLIDINE NEG (NEG)
[2020-02-10 20:43] LABS: AMPHETAMINE/METHAMPHETAMINE NEG (NEG)
[2020-02-10 20:47] LABS: AMORPHOUS SEDIMENT,UR PRESENT /HPF; BACTERIA,URINE 0 /HPF (0-FEW); RBC,URINE 0 /HPF (0-2); WBC,URINE 0 /HPF (0-4)
[2020-02-10 21:15] VITALS: BP 164/54
== END 2020-02-10 21:39 | disposition home or self-care (01) ==
LOC: ER 19:33
DX: F41.1 Generalized anxiety disorder (principal); F41.0 Panic disorder [episodic paroxysmal anxiety]; R06.02 Shortness of breath; E78.00 Pure hypercholesterolemia, unspecified; I10 Essential (primary) hypertension; F32.9 Major depressive disorder, single episode, unspecified; E03.9 Hypothyroidism, unspecified; Z88.0 Allergy status to penicillin; Z88.5 Allergy status to narcotic agent; Z88.3 Allergy status to other anti-infective agents
CPT/HCPCS: 80307; 81001; 99283

== ENCOUNTER → 2020-04-01 | Outpatient (CLI) | payer MEDICARE ==
[2020-04-01 12:46] LABS: BASO # 0.1 x10^3/uL (0.0-0.2); BASO % 1 % (0-3); EOS # 0.1 x10^3/uL (0.0-0.7); EOS % 2 % (0-3); HEMATOCRIT 38.6 % (36.0-47.0); HEMOGLOBIN 13.3 g/dL (12.0-15.5); LYMPH # 1.1 x10^3/uL (1.0-4.8); LYMPH % 20 % (24-48); MEAN CORPUSCULAR HEMOGLOBIN 33 pg (25-35); MEAN CORPUSCULAR HGB CONC 35 g/dL (31-37); MEAN CORPUSCULAR VOLUME 95 fL (79-100); MONO # 0.4 x10^3/uL (0.0-1.1); MONO % 7 % (0-9); NEUT # 4.2 x10^3/uL (1.8-7.7); NEUT % 71 % (31-73); PLATELET COUNT 268 x10^3/uL (140-400); RED BLOOD COUNT 4.05 x10^6/uL (3.50-5.40); WHITE BLOOD COUNT 5.9 x10^3/uL (4.0-11.0)
[2020-04-01 12:52] LABS: CALCIUM 9.6 mg/dL (8.5-10.1); CREATININE 0.8 mg/dL (0.6-1.0); GFR 69.9
[2020-04-01 12:58] LABS: ALBUMIN 3.9 g/dL (3.4-5.0); ALBUMIN/GLOBULIN RATIO 1.2 (1.0-1.7); TOTAL BILIRUBIN 0.4 mg/dL (0.2-1.0); TOTAL PROTEIN 7.1 g/dL (6.4-8.2)
== END ==
LOC: ONCLAB 12:25
PROVIDERS: ATTEND Physician Assistant
DX: C50.212 Malignant neoplasm of upper-inner quadrant of left female breast (principal); E55.9 Vitamin D deficiency, unspecified
CPT/HCPCS: 36415; 80053; 82306; 83615; 85025

== ENCOUNTER → 2020-07-14 | Outpatient (CLI) | payer MEDICARE ==
[~2020-07-14] MED LIST changes: -ERGO500027 PO; +ERGO500089 PO
[2020-07-14 12:04] LABS: BASO # 0.1 x10^3/uL (0.0-0.2); BASO % 1 % (0-3); EOS # 0.2 x10^3/uL (0.0-0.7); EOS % 4 % (0-3); HEMATOCRIT 36.4 % (36.0-47.0); HEMOGLOBIN 12.7 g/dL (12.0-15.5); LYMPH % 20 % (24-48); MEAN CORPUSCULAR HEMOGLOBIN 33 pg (25-35); MEAN CORPUSCULAR HGB CONC 35 g/dL (31-37); MEAN CORPUSCULAR VOLUME 95 fL (79-100); MONO # 0.3 x10^3/uL (0.0-1.1); MONO % 6 % (0-9); NEUT # 3.5 x10^3/uL (1.8-7.7); NEUT % 69 % (31-73); PLATELET COUNT 271 x10^3/uL (140-400); RED BLOOD COUNT 3.84 x10^6/uL (3.50-5.40); RED CELL DISTRIBUTION WIDTH 12.3 % (11.5-14.5); WHITE BLOOD COUNT 5.1 x10^3/uL (4.0-11.0)
[2020-07-14 12:15] LABS: CALCIUM 9.3 mg/dL (8.5-10.1); CREATININE 0.8 mg/dL (0.6-1.0); GFR 69.9; POTASSIUM 4.1 mmol/L (3.5-5.1)
[2020-07-14 12:22] LABS: ALBUMIN 3.9 g/dL (3.4-5.0); ALBUMIN/GLOBULIN RATIO 1.3 (1.0-1.7); TOTAL BILIRUBIN 0.4 mg/dL (0.2-1.0); TOTAL PROTEIN 6.8 g/dL (6.4-8.2)
== END ==
LOC: ONCLAB 11:47
PROVIDERS: ATTEND Internal Medicine Hematology & Oncology
DX: C50.212 Malignant neoplasm of upper-inner quadrant of left female breast (principal)
CPT/HCPCS: 36415; 80053; 85025; 86300

== ENCOUNTER → 2020-09-08 | Outpatient (CLI) | payer MEDICARE ==
[~2020-09-08] MED LIST changes: +BARIUM SULFATE 340 GM SUSPENSION. PO ONE; +BARIUM SULFATE 40% (APPLE) 148 GM PWD. PO ONE; +BARIUM SULFATE 60% 355 ML SUSP PO ONE; +BARIUM SULFATE 700 MG TABLET PO ONE; +SIMETHICONE/SOD BICARB/CITRIC ACID PACKET. PO ONE
--- NOTE | 2020-09-08 14:49 | RAD ---
DG VIDEO SWALLOW STUDY Reason for Examination: Reason: Dysphagia With the patient in the lateral projection, using video observation and recording, the patient was as ked to swallow barium liquid, barium impregnated pudding, and chew and swallow barium impregnated mix ed consistency and cracker. No penetration or aspiration. Interpretation (personally supervised): Total fluoroscopy time was 0.7 minutes. Fluoroscopic spot images: 1 Impression: 1. No evidence of aspiration or penetration. Please refer to speech pathology notes for further details. Electronically signed by: Ronnie Lieberman DO (09/08/2020 2:47 PM) [id number]
--- NOTE | 2020-09-08 14:52 | RAD ---
Esophagram History:Reason: DIFFICULTY SWALLOWING, FLOURO TIME 2.3 / Spl. Instructions: / History: Comparison studies: None. Technique: Esophagram was performed utilizing double contrast upright examination, single contrast pr one examination, and cine evaluation of cervical esophageal swallow function. Findings: Barium swallow was performed without difficulty. Mild esophageal dysmotility with with prox imal escape and tertiary contractions. No mucosal abnormalities. No gastroesophageal reflux or hiatal hernia. No esophageal diverticulum. Fundus of the stomach was unremarkable. Prominence of the cricopharyngeus muscle more prominent on prone imaging compare to standing. Fluoroscopic time: 2.3 minutes. Fluoroscopic images: 22 IMPRESSION: 1. Mild esophageal dysmotility. 2. Mild prominence of the cricopharyngeus muscle. Electronically signed by: Ronnie Lieberman DO (09/08/2020 2:50 PM) [id number]
== END | disposition home or self-care (01) ==
LOC: RAD 09:39
PROVIDERS: ATTEND Family Medicine
DX: R13.10 Dysphagia, unspecified (principal); I10 Essential (primary) hypertension; K21.9 Gastro-esophageal reflux disease without esophagitis; E78.00 Pure hypercholesterolemia, unspecified; F41.9 Anxiety disorder, unspecified; F32.9 Major depressive disorder, single episode, unspecified; M19.90 Unspecified osteoarthritis, unspecified site; Z85.3 Personal history of malignant neoplasm of breast; Z92.21 Personal history of antineoplastic chemotherapy; Z79.899 Other long term (current) drug therapy; E89.0 Postprocedural hypothyroidism; Z90.11 Acquired absence of right breast and nipple; Z98.890 Other specified postprocedural states
CPT/HCPCS: 74220; 74230; 92611-GN

== ENCOUNTER → 2020-10-15 | Outpatient (CLI) | payer MEDICARE ==
[~2020-10-15] MED LIST changes: -BARIUM SULFATE 340 GM SUSPENSION. PO ONE; -BARIUM SULFATE 40% (APPLE) 148 GM PWD. PO ONE; -BARIUM SULFATE 60% 355 ML SUSP PO ONE; -BARIUM SULFATE 700 MG TABLET PO ONE; -SIMETHICONE/SOD BICARB/CITRIC ACID PACKET. PO ONE
[2020-10-15 12:16] LABS: BASO % 1 % (0-3); EOS # 0.1 x10^3/uL (0.0-0.7); EOS % 2 % (0-3); HEMATOCRIT 37.2 % (36.0-47.0); HEMOGLOBIN 12.9 g/dL (12.0-15.5); LYMPH % 19 % (24-48); MEAN CORPUSCULAR HEMOGLOBIN 33 pg (25-35); MEAN CORPUSCULAR HGB CONC 35 g/dL (31-37); MEAN CORPUSCULAR VOLUME 95 fL (79-100); MONO # 0.3 x10^3/uL (0.0-1.1); MONO % 6 % (0-9); NEUT # 3.8 x10^3/uL (1.8-7.7); NEUT % 71 % (31-73); PLATELET COUNT 268 x10^3/uL (140-400); RED BLOOD COUNT 3.94 x10^6/uL (3.50-5.40); RED CELL DISTRIBUTION WIDTH 12.3 % (11.5-14.5); WHITE BLOOD COUNT 5.3 x10^3/uL (4.0-11.0)
[2020-10-15 12:34] LABS: ALBUMIN 3.9 g/dL (3.4-5.0); ALBUMIN/GLOBULIN RATIO 1.3 (1.0-1.7); CALCIUM 9.2 mg/dL (8.5-10.1); CREATININE 0.8 mg/dL (0.6-1.0); GFR 69.7; TOTAL BILIRUBIN 0.6 mg/dL (0.2-1.0); TOTAL PROTEIN 6.9 g/dL (6.4-8.2)
== END ==
LOC: ONCLAB 11:42
PROVIDERS: ATTEND Physician Assistant
DX: C50.212 Malignant neoplasm of upper-inner quadrant of left female breast (principal)
CPT/HCPCS: 36415; 80053; 85025; 86300

== ENCOUNTER → 2021-01-14 | Outpatient (CLI) | payer MEDICARE ==
[~2021-01-14] MED LIST changes: -DULO60CA6 PO; +DULO60CA7 PO
[2021-01-14 10:29] LABS: BASO # 0.1 x10^3/uL (0.0-0.2); BASO % 1 % (0-3); EOS # 0.1 x10^3/uL (0.0-0.7); EOS % 3 % (0-3); HEMOGLOBIN 13.3 g/dL (12.0-15.5); LYMPH # 0.8 x10^3/uL (1.0-4.8); LYMPH % 17 % (24-48); MEAN CORPUSCULAR HEMOGLOBIN 33 pg (25-35); MEAN CORPUSCULAR HGB CONC 35 g/dL (31-37); MEAN CORPUSCULAR VOLUME 95 fL (79-100); MONO # 0.2 x10^3/uL (0.0-1.1); MONO % 6 % (0-9); NEUT # 3.2 x10^3/uL (1.8-7.7); NEUT % 73 % (31-73); PLATELET COUNT 285 x10^3/uL (140-400); RED BLOOD COUNT 3.99 x10^6/uL (3.50-5.40); RED CELL DISTRIBUTION WIDTH 12.7 % (11.5-14.5); WHITE BLOOD COUNT 4.4 x10^3/uL (4.0-11.0)
[2021-01-14 10:37] LABS: CALCIUM 8.6 mg/dL (8.5-10.1); CREATININE 0.7 mg/dL (0.6-1.0); GFR 81.4; POTASSIUM 4.3 mmol/L (3.5-5.1)
[2021-01-14 10:43] LABS: ALBUMIN 3.8 g/dL (3.4-5.0); ALBUMIN/GLOBULIN RATIO 1.3 (1.0-1.7); TOTAL BILIRUBIN 0.5 mg/dL (0.2-1.0); TOTAL PROTEIN 6.8 g/dL (6.4-8.2)
== END ==
LOC: ONCLAB 10:09
PROVIDERS: ATTEND Internal Medicine Hematology & Oncology
DX: C50.212 Malignant neoplasm of upper-inner quadrant of left female breast (principal); E55.9 Vitamin D deficiency, unspecified
CPT/HCPCS: 36415; 80053; 82306; 85025; 86300